=== PATIENT | female | born 1960 | race Caucasian/White ===

== ENCOUNTER 2021-01-17 19:16 | Emergency (ER) | payer OTHER ==
--- OUTSIDE RECORDS SUMMARY | 2021-01-17 19:19 | XMS REPORT | Continuity of Care Document ---
:1960 Author Organization [facility] t Address [address] [place] [address] Dr. Hawkins [address] [place] [id number] Care Team Providers Name Role Phone Unavailable Unavailable Unavailable Problems This patient has no known problems. Allergies, Adverse Reactions, Alerts This patient has no known allergies or adverse reactions. Medications This patient has no known medications. Procedures This patient has no known procedures. Results This patient has no known results.
--- NOTE | 2021-01-17 20:21 | EDPHYS ---
Physician Documentation [facility] Name: Liane Connolly Age: 60 yrs Sex: Female : 1960 Arrival Date: 01/17/2021 Time: 19:18 Bed Waiting Private MD: Sung Turcios C ED Physician Jose Thapa HPI: 01/17 20:19 This 60 yrs old Female presents to ER via Ambulatory with complaints of cp Poison Lydia. 20:19 The patient's rash thought to be caused by Contact allergy. cp 20:19 The rash is located on the body diffusely. The rash can be described as erythematous, cp plaque-like. Onset: The symptoms/episode began/occurred 2 day(s) ago. Associated signs and symptoms: Pertinent positives: itching, Pertinent negatives: burning sensation, difficulty breathing, fever, swelling of lips, swelling of throat, swelling of tongue. Treatment given at home: OTC lotion/cream. Historical: - Allergies: 20:17 avalox; em - PMHx: 20:17 Diabetes mellitus; Hypertensive disorder; gerd; em - PSHx: 20:17 Cholecystectomy; em - Immunization history:: Client reports receiving the 2nd dose of the Covid vaccine. - Social history:: Smoking status: Patient denies any tobacco usage or history of. ROS: 20:20 Skin: Positive for rash, diffusely. cp 20:20 Respiratory: Negative for shortness of breath, wheezing. cp 20:20 Eyes: Negative for injury, pain, redness, and discharge. cp 20:20 Constitutional: Negative for body aches, chills, fever, poor PO intake. 20:20 ENT: Negative for ear pain, sore throat, difficulty swallowing, difficulty handling secretions. 20:20 Cardiovascular: Negative for chest pain. 20:20 Abdomen/GI: Negative for abdominal pain, nausea, vomiting, and diarrhea. 20:20 All other systems are negative. Exam: 20:20 Constitutional: The patient appears in no acute distress, alert, awake, cp non-diaphoretic, non-toxic, well developed, well nourished. 20:20 Head/face: Exam is negative for obvious evidence of injury or deformity, swelling. cp 20:20 Eyes: Periorbital structures: appear normal, Conjunctiva: normal, no exudate, no injection, Sclera: no appreciated abnormality, Lids and lashes: appear normal, bilaterally. 20:20 ENT: External ear(s): are unremarkable, Nose: is normal, Mouth: Lips: moist, Oral mucosa: moist, Posterior pharynx: Airway: no evidence of obstruction, patent, swelling, is not appreciated, erythema, is not appreciated. 20:20 Cardiovascular: Rhythm: regular. 20:20 Respiratory: the patient does not display signs of respiratory distress, Respirations: normal, no use of accessory muscles, no retractions, labored breathing, is not present, Breath sounds: are clear throughout, no decreased breath sounds, no stridor, no wheezing. 20:20 Skin: cellulitis, is not appreciated, rash can be described as erythematous, excoriated, plaque-like, consistent with contact dermatitis, and is diffusely located. Vital Signs: 20:13 BP 129 / 74; Pulse 77; Resp 20; Temp 98.1; Pulse Ox 99% on R/A; Weight 99.79 kg; Height em 5 ft. 6 in. (167.64 cm); 20:13 Body Mass Index 35.51 (99.79 kg, 167.64 cm) em MDM: 20:20 Patient medically screened. cp 20:20 Differential diagnosis: varicella, allergic reaction, cellulitis. 20:20 Data reviewed: vital signs, nurses notes. Counseling: I had a detailed discussion with cp the patient and/or guardian regarding: the historical points, exam findings, and any diagnostic results supporting the discharge/admit diagnosis, to return to the emergency department if symptoms worsen or persist or if there are any questions or concerns that arise at home. Response to treatment: the patient's symptoms have mildly improved after treatment, and as a result, I will discharge patient. ED course: VSS. Patient appears non-toxic and no signs of respiratory distress. Will discharge to home for continued monitoring. Administered Medications: 20:27 Drug: SOLU-Medrol (methylPREDNISolone sodium succinate) 125 mg Route: IM; Site: right em deltoid; 20:28 Follow up: Response: Medication administered at discharge. em 20:27 Drug: Atarax (hydrOXYzine) 50 mg Route: PO; em 20:28 Follow up: Response: Medication administered at discharge. em Disposition: 20:25 Chart complete. 01/18 03:22 Co-signature as Attending Physician, Jose Thapa MD I agree with the assessment and rn plan of care. Attestation: The patient's history, exam findings, diagnostics, and a summary of any interventions or procedures was reviewed in detail with Dominguez AGUSTIN. Disposition Summary: 01/17/21 20:20 Discharge Ordered Location: Home cp Problem: new cp Symptoms: have improved cp Condition: Stable cp Diagnosis - Irritant contact dermatitis due to plants, except food cp Followup: cp - With: Private Physician - When: 2 - 3 days - Reason: Worsening of condition Discharge Instructions: - Discharge Summary Sheet cp - Poison Lydia Dermatitis cp Forms: - Medication Reconciliation Form cp - Thank You Letter cp - Antibiotic Education cp - Prescription Opioid Use cp Prescriptions: - Vistaril 25 mg Oral capsule - take 2 capsule by ORAL route 4 times per day As needed may take 1-2 capsules cp every 6 hours as needed for itching; 40 capsule; Refills: 0, Product Selection Permitted - Prednisone 20 mg Oral Tablet - take 2 tablets by ORAL route once daily for 5 days then take 1 tablet daily for cp 5 days; 15 tablet; Refills: 0, Product Selection Permitted - Pepcid 20 mg Oral Tablet - take 1 tablet by ORAL route every 12 hours for 10 days; 20 tablet; Refills: 0, cp Product Selection Permitted Signatures: Aldo Jacobo RN RN em Nieto, Roman, MD MD rn Page, Corey, PA PA cp Corrections: (The following items were deleted from the chart) 04:55 01/17 20:19 Onset: The symptoms/episode began/occurred 3 day(s) ago, cp cp
--- NOTE | 2021-01-17 20:21 | ER ---
Nurse's Notes [facility] Name: Liane Connolly Age: 60 yrs Sex: Female : 1960 Arrival Date: 01/17/2021 Time: 19:18 Bed Waiting Private MD: Sung Turcios C Diagnosis: Irritant contact dermatitis due to plants, except food Presentation: 01/17 20:13 Chief complaint: Patient states: got into some poison oneal 2 days, reports itchiness on em face, анна. arms. and анна. legs, also reports some itchiness in throat, denies shortness of breath. Coronavirus screen: Client denies travel out of the [place] in the last 14 days. Ebola Screen: Patient negative for fever greater than or equal to 101.5 degrees Fahrenheit, and additional compatible Ebola Virus Disease symptoms Patient denies exposure to infectious person. Patient denies travel to an Ebola-affected area in the 21 days before illness onset. No symptoms or risks identified at this time. Initial Sepsis Screen: Does the patient meet any 2 criteria? No. Patient's initial sepsis screen is negative. Does the patient have a suspected source of infection? No. Patient's initial sepsis screen is negative. Risk Assessment: Do you want to hurt yourself or someone else? Patient reports no desire to harm self or others. Onset of symptoms was January 17, 2021. 20:13 Method Of Arrival: Ambulatory em 20:13 Acuity: ESAU 5 em Triage Assessment: 20:17 General: Appears in no apparent distress. uncomfortable, Behavior is calm, cooperative, em appropriate for age. Pain: Complains of pain in face, right arm, left arm, right leg and left leg Quality of pain is described as itchy. Neuro: Level of Consciousness is awake, alert, obeys commands, Oriented to person, place, time, situation. Cardiovascular: Capillary refill < 3 seconds Patient's skin is warm and dry. Respiratory: Airway is patent Respiratory effort is even, unlabored, Respiratory pattern is regular, symmetrical. Derm: Skin is intact, is healthy with good turgor, Skin is pink, warm \T\ dry. Musculoskeletal: Capillary refill < 3 seconds, Range of motion: intact in all extremities. Historical: - Allergies: 20:17 avalox; em - PMHx: 20:17 Diabetes mellitus; Hypertensive disorder; gerd; em - PSHx: 20:17 Cholecystectomy; em - Immunization history:: Client reports receiving the 2nd dose of the Covid vaccine. - Social history:: Smoking status: Patient denies any tobacco usage or history of. Screenin:18 Abuse screen: Denies threats or abuse. Nutritional screening: No deficits noted. em Tuberculosis screening: No symptoms or risk factors identified. Fall Risk None identified. Vital Signs: 20:13 BP 129 / 74; Pulse 77; Resp 20; Temp 98.1; Pulse Ox 99% on R/A; Weight 99.79 kg; Height em 5 ft. 6 in. (167.64 cm); 20:13 Body Mass Index 35.51 (99.79 kg, 167.64 cm) em ED Course: 19:18 Patient arrived in ED. mr 19:18 Sung Turcios MD is Private Physician. mr 20:17 Triage completed. em 20:18 Arm band placed on. em 20:18 Patient has correct armband on for positive identification. em 20:18 No provider procedures requiring assistance completed. Patient did not have IV access em during this emergency room visit. 20:19 Dominguez Menezes PA is PHCP. cp 20:19 Jose Thapa MD is Attending Physician. cp 20:27 Aldo Jacobo, DENISE is Primary Nurse. em Administered Medications: 20:27 Drug: SOLU-Medrol (methylPREDNISolone sodium succinate) 125 mg Route: IM; Site: right em deltoid; 20:28 Follow up: Response: Medication administered at discharge. em 20:27 Drug: Atarax (hydrOXYzine) 50 mg Route: PO; em 20:28 Follow up: Response: Medication administered at discharge. em Outcome: 20:20 Discharge ordered by . cp 20:28 Discharged to home ambulatory. em 20:28 Condition: stable 20:28 Discharge instructions given to patient, Instructed on discharge instructions, follow up and referral plans. medication usage, Demonstrated understanding of instructions, follow-up care, medications, Prescriptions given X 3. 20:29 Patient left the ED. em Signatures: Nasreen De Leon mr Aldo Jacobo, RN RN em Dominguez Menezes PA PA cp
[2021-01-17 20:35] VITALS: BP 129/74; TEMP 98.1; O2SAT 99
[2021-01-17] MEDS ORDERED: METHYLPREDNISOLONE 125 MG INJ ONE (20:43)
[2021-01-17] MEDS ORDERED: hydrOXYzine HCL 25 MG TAB ONE (20:44)
== END 2021-01-17 20:29 | disposition home or self-care (01) ==
LOC: ER 19:16
DX: L24.7 Irritant contact dermatitis due to plants, except food (principal); I10 Essential (primary) hypertension; Z88.8 Allergy status to other drugs, medicaments and biological substances
CPT/HCPCS: 96372; 99283; J2930

== ENCOUNTER 2023-12-22 11:49 | Observation (INO) | payer OTHER ==
--- OUTSIDE RECORDS SUMMARY | 2023-12-22 12:01 | XMS REPORT | Continuity of Care Document ---
Author Name Unknown Address [address] [facility] [address] th[address] Address [address] [facility] [address] [place] [address] Care Team Providers Care Interactive Video Technician Name Role Phone Unavailable Unavailable Unavailable
--- NOTE | 2023-12-22 12:16 | RAD REPORT ---
EXAM DESCRIPTION: RAD - Chest Single View - 12/22/2023 12:11 pm CLINICAL HISTORY: CHEST PAIN Chest pain. COMPARISON: Chest Pa And Lat (2 Views) dated 06/26/2017; CHEST PA AND LAT 2 VIEW dated 07/31/2014 FINDINGS: Portable technique limits examination quality. The lungs are grossly clear. The heart is normal in size. No displaced fractures. IMPRESSION: No acute intrathoracic process suspected.
[2023-12-22 12:35] LABS: Absolute Lymphocytes (CBC) 1.1 K/uL (0.7-4.9); Absolute Monocytes 0.3 K/uL (0.1-1.3); Absolute Neutrophil 4.2 K/uL (1.8-8.0); Basophils % 0.7 % (0-1.3); Eosinophils % 0.2 % (0-4.4); Hematocrit 41.6 % (36.0-45.0); Hemoglobin 13.9 g/dL (12.0-15.0); Lymphocytes % 19.8 % (15.3-44.8); MCH 29.6 pg (27.0-35.0); MCHC 33.5 g/dL (32.0-36.0); MCV 88.4 fL (80-100); MPV 8.4 fL (7.6-11.3); Monocytes % 5.8 % (3.3-12.3); Neutrophils % 73.5 % (41.7-73.7); Nucleated Red Blood Cells % 0.1 % (0-0); Platelets 139 thou/uL (152-406); RBC Red Blood Cell Count 4.71 M/uL (3.86-4.86)
[2023-12-22 12:45] LABS: Protime INR 1.26
[2023-12-22 14:32] LABS: Specific Gravity 1.015 (1.005-1.030); Sqamous Epithelial <5 /HPF (None Seen); Urine Bacteria None Seen /HPF (<20); Urine Bilirubin NEGATIVE (Negative); Urine Blood 2+ (Negative); Urine Clarity Turbid (Clear); Urine Color Light-Yellow (Yellow); Urine Culture Reflex Order NOT NEEDED; Urine Glucose NEGATIVE (Negative); Urine Ketones 1+ (Negative); Urine Microscopic Reflex YN ORDER UMIC; Urine Mucus Slight /HPF (None Seen); Urine Nitrite NEGATIVE (Negative); Urine Protein TRACE (Negative); Urine RBC <5 /HPF (None Seen); Urine Urobilinogen Normal (Normal); Urine WBC <5 /HPF (<5); Urine pH 5.5 (5.0-7.0)
[2023-12-22 15:17] LABS: Albumin 3.8 g/dL (3.4-5.0); Anion Gap 11.1 mEq/L (5.0-15.0); Bilirubin Direct 0.2 mg/dL (0-0.2); Bilirubin Indirect, Calculated 0.5 mg/dL (0.2-0.8); Bilirubin Total 0.7 mg/dL (0.2-1.0); Globulin 3.8 g/dL (2.3-3.5); Protein, Total 7.6 g/dL (6.4-8.2)
[2023-12-22 15:18] LABS: Magnesium 2.1 mg/dL (1.6-2.4); Potassium 4.1 mEq/L (3.5-5.1)
[2023-12-22] MEDS ORDERED: ONDANSETRON 4 MG/2 ML VIAL ONE (15:39)
[2023-12-22] MEDS ORDERED: PANTOPRAZOLE 40 MG INJ ONE (15:39)
--- NOTE | 2023-12-22 15:39 | ER ---
Nurse's Notes [facility] Name: Liane Connolly Age: 63 yrs Sex: Female : 1960 Arrival Date: 12/22/2023 Time: 11:49 Bed 23 Private MD: Diagnosis: Chest pain, unspecified;Angina pectoris, unspecified;Epigastric abdominal tenderness;Type 2 diabetes mellitus with hyperglycemia;Essential (primary) hypertension;Abnormal electrocardiogram [ECG] [EKG] Presentation: 12/21 12:01 Chief complaint: Patient states: CP for 45 minutes [employer]. Epigastric pain with N/V/D for ll1 3 days. + dizziness EMS states: VSS, IV R AC 550 ml NS bolus given, Zofran 4 MG IV, and aspirin 324 MB PO en route NS on monitor. Coronavirus screen: Client denies travel out of the [place] in the last 14 days. At this time, the client does not indicate any symptoms associated with coronavirus-19. Ebola Screen: Patient denies travel to an Ebola-affected area in the 21 days before illness onset. Initial Sepsis Screen: Does the patient meet any 2 criteria? No. Patient's initial sepsis screen is negative. Does the patient have a suspected source of infection? No. Patient's initial sepsis screen is negative. Risk Assessment: Do you want to hurt yourself or someone else? Patient reports no desire to harm self or others. Onset of symptoms was December 20, 2023. 12:01 Method Of Arrival: EMS ll1 12:01 Acuity: ESAU 3 ll1 Triage Assessment: 12:18 General: Appears uncomfortable, Behavior is calm, cooperative, appropriate for age. ll1 Pain: Complains of pain in epigastric Quality of pain is described as aching. Cardiovascular: Reports chest pain. GI: Reports upper abdominal pain, cramping, diarrhea, nausea, vomiting. Historical: - Allergies: 12:01 AVALOX; ll1 - PMHx: 12:01 diabetes mellitus; GERD; Hypertensive disorder; ll1 - PSHx: 12:01 Cholecystectomy; ll1 - Immunization history:: Adult Immunizations up to date. - Infectious Disease History:: Denies. - Social history:: Smoking status: Patient denies any tobacco usage or history of. Screenin:39 [facility] ED Fall Risk Assessment (Adult) History of falling in the last 3 months, cm10 including since admission No falls in past 3 months (0 pts) Confusion or Disorientation No (0 pts) Intoxicated or Sedated No (0 pts) Impaired Gait No (0 pts) Mobility Assist Device Used No (0 pt) Altered Elimination No (0 pt) Score/Fall Risk Level 0 - 2 = Low Risk Oriented to surroundings, Maintained a safe environment, Hourly rounding (assess needs \T\ fall precautionary measures) done. Abuse screen: Denies threats or abuse. Denies injuries from another. Nutritional screening: No deficits noted. Tuberculosis screening: No symptoms or risk factors identified. Assessment: 12:37 General: Appears in no apparent distress. comfortable, Behavior is calm, cooperative. cm10 Pain: Complains of pain in epigastric area Pain radiates to back. Neuro: No deficits noted. Level of Consciousness is awake, alert, obeys commands, Oriented to person, place, time, situation, Appropriate for age. Cardiovascular: No deficits noted. Patient's skin is warm and dry. Rhythm is sinus rhythm. Respiratory: No deficits noted. Airway is patent Respiratory effort is even, unlabored, Respiratory pattern is regular, symmetrical, Breath sounds are clear bilaterally. GI: No deficits noted. Reports diarrhea, epigastric pain, nausea, vomiting. Derm: No deficits noted. Skin is intact, Skin is pink, warm \T\ dry. 14:48 Reassessment: Patient appears in no apparent distress at this time. No changes from cm10 previously documented assessment. Patient and/or family updated on plan of care and expected duration. Pain level reassessed. Patient is alert, oriented x 3, equal unlabored respirations, skin warm/dry/pink. 15:48 Reassessment: Pt tearful, crying after provider letting her know that she will be cm10 getting a CT to rule out a dissection. Pt states that her son from a dissection and she is scared. Dr. Lazaro made aware and verbal orders for Ativan 1mg IVP obtained to help patient's anxiety. Vital Signs: 12:16 BP 125 / 78; Pulse 66; Resp 17; Temp 98(O); Pulse Ox 98% on R/A; Weight 74.84 kg; ll1 Height 5 ft. 6 in. ; Pain 5/10; 12:32 BP 118 / 83; Pulse 70; Resp 16; Pulse Ox 95% ; cm10 13:00 BP 130 / 72; Pulse 65; Resp 19; Pulse Ox 96% on R/A; cm10 14:14 BP 127 / 69; Pulse 65; Resp 17; Pulse Ox 98% on R/A; cm10 14:30 BP 118 / 70; Pulse 67; Resp 15; Pulse Ox 98% on R/A; cm10 15:00 BP 124 / 66; Pulse 66; Resp 15; Pulse Ox 98% ; cm10 15:30 BP 135 / 68; Pulse 72; Resp 16; Pulse Ox 98% ; cm10 17:00 BP 108 / 64; Pulse 66; Resp 18; Pulse Ox 97% ; cm10 18:00 BP 101 / 51; Pulse 60; Resp 18; Pulse Ox 97% ; cm10 12:16 Body Mass Index 26.63 (74.84 kg, 167.64 cm) ll1 12:16 Pain Scale: Adult ll1 Vitals: 12:38 Cardiac Rhythm Assessment Regular Sinus rhythm. cm10 ED Course: 11:59 Patient arrived in ED. ll1 11:59 Dominguez Lazaro MD is Attending Physician. sandra 12:01 Arm band placed on Patient placed in an exam room, on a stretcher. ll1 12:05 Triage completed. ll1 12:13 XRAY Chest (1 view) In Process Unspecified. EDMS 12:17 Brie Rajput, RN is Primary Nurse. cm10 12:18 Maintain EMS IV. Dressing intact. Good blood return noted. Site clean \T\ dry. Gauge \T\ ll 1 site: 20 G R AC. Flushed right antecubital. 12:37 Initial lab(s) drawn, by me, sent to lab. cm10 12:39 Patient has correct armband on for positive identification. Bed in low position. Call cm10 light in reach. Side rails up X2. Provided Education on: ER process and procedures.. Client placed on continuous cardiac and pulse oximetry monitoring. NIBP monitoring applied. monitor technician on. Door closed. Pillow given. 15:29 ED physician to see patient. cm10 15:37 Sung Turcios MD is Hospitalizing Provider. sandra 16:11 Patient moved back from CT. cm10 18:05 Report faxed at [phone], Betsy confirmed received at 1804. cm10 18:52 No provider procedures requiring assistance completed. Patient admitted, IV remains in cm10 place. Administered Medications: 12:36 Drug: NS 0.9% IV 1000 ml IV at 125 ml/hr continuous Route: IV; Rate: 125 ml/hr; Site: cm10 right antecubital; 18:51 Follow up: Response: No adverse reaction; IV Status: Completed infusion; IV Intake: cm10 500ml 15:41 Not Given (Duplicate Order): aspirinchewable tablet 162 mg PO once sandra 15:50 Drug: Ativan IVP 1 mg IVP once Route: IVP; Site: right antecubital; cm10 16:20 Follow up: Response: No adverse reaction; Marked relief of symptoms cm10 16:20 Drug: Pantoprazole IVP 40 mg IVP once Route: IVP; Site: right antecubital; cm10 18:52 Follow up: Response: No adverse reaction cm10 16:20 Drug: Ondansetron IVP 4 mg IVP once; over 2 minutes Route: IVP; Site: right antecubital;cm10 18:51 Follow up: Response: No adverse reaction 10 16:22 Drug: morphine IVP or IV 4 mg IVP once over 4 mins Route: IVP; Infused Over: 4 mins; cm10 Site: right antecubital; 18:51 Follow up: Response: No adverse reaction 10 16:53 Drug: Metoprolol IVP 2.5 mg IVP once; Hold for SBP <100 or HR <60. Route: IVP; Site: cm10 right antecubital; 18:51 Follow up: Response: No adverse reaction cm10 16:53 Drug: Metoprolol PO 25 mg PO once Route: PO; cm10 18:51 Follow up: Response: No adverse reaction cm10 18:34 Drug: Enoxaparin Sub-Q 1 mg/kg Sub-Q once; givr if ct dissection negative Route: Sub-Q; ll1 Site: right upper abdomen; 18:51 Follow up: Response: No adverse reaction 10 Medication: 12:38 VIS not applicable for this client. cm10 Intake: 18:51 IV: 500ml; Total: 500ml. cm10 Outcome: 15:39 Decision to Hospitalize by Provider. [facility] 18:52 Admitted to Tele accompanied by tech, via wheelchair, room 402, cm10 18:52 Condition: good 18:52 Instructed on the need for admit, 18:52 Patient left the ED. cm10 Signatures: Dispatcher [employer] Dominguez Schuster MD MD cha Lewis, Lynsay RN RN ll1 Brie Rajput RN RN cm10 Corrections: (The following items were deleted from the chart) 14:48 12:32 BP 118 / 3; Pulse 70bpm; Resp 16bpm; Pulse Ox 95%; cm10 cm10
--- NOTE | 2023-12-22 15:39 | EDPHYS ---
Physician Documentation [facility] Name: Liane Connolly Age: 63 yrs Sex: Female : 1960 Arrival Date: 12/22/2023 Time: 11:49 Bed 23 Private MD: ED Physician Dominguez Lazaro HPI: 12/21 15:33 This 63 yrs old Female presents to ER via EMS with complaints of Epigastric sandra Pain, Chest Pain. Historical: - Allergies: 12:01 AVALOX; ll1 - PMHx: 12:01 diabetes mellitus; GERD; Hypertensive disorder; ll1 - PSHx: 12:01 Cholecystectomy; ll1 - Immunization history:: Adult Immunizations up to date. - Infectious Disease History:: Denies. - Social history:: Smoking status: Patient denies any tobacco usage or history of. ROS: 15:35 Constitutional: Negative for fever, chills, and weight loss, Eyes: Negative for injury, sandra pain, redness, and discharge, ENT: Negative for injury, pain, and discharge, Neck: Negative for injury, pain, and swelling, Respiratory: Negative for shortness of breath, cough, wheezing, and pleuritic chest pain, Abdomen/GI: Negative for abdominal pain, nausea, vomiting, diarrhea, and constipation, Back: Negative for injury and pain, : Negative for injury, bleeding, discharge, and swelling, MS/Extremity: Negative for injury and deformity, Skin: Negative for injury, rash, and discoloration, Neuro: Negative for headache, weakness, numbness, tingling, and seizure, Psych: Negative for depression, anxiety, suicide ideation, homicidal ideation, and hallucinations, Allergy/Immunology: Negative for hives, rash, and allergies, Endocrine: Negative for neck swelling, polydipsia, polyuria, polyphagia, and marked weight changes, Hematologic/Lymphatic: Negative for swollen nodes, abnormal bleeding, and unusual bruising, 15:35 Cardiovascular: Positive for chest pain, of the chest, 15:35 Abdomen/GI: Positive for abdominal pain, of the epigastric area, Exam: 15:35 Constitutional: This is a well developed, well nourished patient who is awake, alert, sandra and in no acute distress. Head/Face: Normocephalic, atraumatic. Eyes: Pupils equal round and reactive to light, extra-ocular motions intact. Lids and lashes normal. Conjunctiva and sclera are non-icteric and not injected. Cornea within normal limits. Periorbital areas with no swelling, redness, or edema. ENT: Nares patent. No nasal discharge, no septal abnormalities noted. Tympanic membranes are normal and external auditory canals are clear. Oropharynx with no redness, swelling, or masses, exudates, or evidence of obstruction, uvula midline. Mucous membranes moist. Neck: Trachea midline, no thyromegaly or masses palpated, and no cervical lymphadenopathy. Supple, full range of motion without nuchal rigidity, or vertebral point tenderness. No Meningismus. Chest/axilla: Normal chest wall appearance and motion. Nontender with no deformity. No lesions are appreciated. Respiratory: Lungs have equal breath sounds bilaterally, clear to auscultation and percussion. No rales, rhonchi or wheezes noted. No increased work of breathing, no retractions or nasal flaring. Back: No spinal tenderness. No costovertebral tenderness. Full range of motion. Female : Normal external genitalia. Skin: Warm, dry with normal turgor. Normal color with no rashes, no lesions, and no evidence of cellulitis. MS/ Extremity: Pulses equal, no cyanosis. Neurovascular intact. Full, normal range of motion. Neuro: Awake and alert, GCS 15, oriented to person, place, time, and situation. Cranial nerves II-XII grossly intact. Motor strength 5/5 in all extremities. Sensory grossly intact. Cerebellar exam normal. Normal gait. Psych: Awake, alert, with orientation to person, place and time. Behavior, mood, and affect are within normal limits. 15:35 Cardiovascular: Rate: normal, Rhythm: regular, Pulses: Pulses are 4+ in bilateral radial, brachial, femoral, popliteal, posterior tibial and and dorsalis pedis arteries.. Heart sounds: normal, Edema: is not appreciated, JVD: is not appreciated, 15:50 ECG was reviewed by the Attending Physician. sandra Vital Signs: 12:16 BP 125 / 78; Pulse 66; Resp 17; Temp 98(O); Pulse Ox 98% on R/A; Weight 74.84 kg; ll1 Height 5 ft. 6 in. ; Pain 5/10; 12:32 BP 118 / 83; Pulse 70; Resp 16; Pulse Ox 95% ; cm10 13:00 BP 130 / 72; Pulse 65; Resp 19; Pulse Ox 96% on R/A; cm10 14:14 BP 127 / 69; Pulse 65; Resp 17; Pulse Ox 98% on R/A; cm10 14:30 BP 118 / 70; Pulse 67; Resp 15; Pulse Ox 98% on R/A; cm10 15:00 BP 124 / 66; Pulse 66; Resp 15; Pulse Ox 98% ; cm10 15:30 BP 135 / 68; Pulse 72; Resp 16; Pulse Ox 98% ; cm10 17:00 BP 108 / 64; Pulse 66; Resp 18; Pulse Ox 97% ; cm10 18:00 BP 101 / 51; Pulse 60; Resp 18; Pulse Ox 97% ; cm10 12:16 Body Mass Index 26.63 (74.84 kg, 167.64 cm) ll1 12:16 Pain Scale: Adult ll1 MDM: 11:59 Patient medically screened. sandra 15:40 HEART Score: History: Slightly Suspicious (0), ECG: Non specific repolarization sandra disturbance / LBTB / PM (1), Age: > 45 and < 65 years (1), Risk Factors: > or = 3 Risk factors for atherosclerotic disease (2), [Hypercholesterolemia] [Hypertension] [+ Family HX] [Obesity] Troponin: < or = 1 x Normal Limit (0). The patient was given aspirin in the Emergency Department. ASHLEE Risk Score: 1 - patient's age is greater or equal to 65 years, 1 - Three or more CAD risk factors, 1- Known CAD, 1 - ASA use in past 7 days, 1 - Recent [<24hrs] Severe Angina. Data reviewed: vital signs, nurses notes, lab test result(s), EKG, radiologic studies, CT scan, plain films. Consideration of Admission/Observation Patient was admitted/placed on observation. Escalation of care including admission/observation considered. 12/21 12:00 Order name: Basic Metabolic Panel; Complete Time: 15:24 [facility] 12/21 12:00 Order name: CBC with Diff; Complete Time: 15:24 [facility] 12/21 12:00 Order name: LFT's; Complete Time: 15:24 [facility] 12/21 12:00 Order name: Magnesium; Complete Time: 15:24 [facility] 12/21 12:00 Order name: NT PRO-BNP; Complete Time: 15:24 [facility] 12/21 12:00 Order name: PT-INR; Complete Time: 15:24 [facility] 12/21 12:00 Order name: Troponin HS; Complete Time: 15:24 [facility] 12/21 12:00 Order name: Lipase; Complete Time: 15:24 [facility] 12/21 12:00 Order name: Urinalysis w/ reflexes; Complete Time: 15:24 [facility] 12/21 12:00 Order name: XRAY Chest (1 view); Complete Time: 15:24 [facility] 12/21 17:13 Order name: CT [facility] 12/21 12:00 Order name: EKG; Complete Time: 12:01 [facility] 12/21 15:48 Order name: CONS Physician Consult [facility] 12/21 12:00 Order name: Cardiac monitoring; Complete Time: 12:36 [facility] 12/21 12:00 Order name: EKG - Nurse/Tech; Complete Time: 12:37 [facility] 12/21 12:00 Order name: IV Saline Lock; Complete Time: 12:37 [facility] 12/21 12:00 Order name: Labs collected and sent; Complete Time: 12:37 [facility] 12/21 12:00 Order name: O2 Per Protocol; Complete Time: 12:37 [facility] 12/21 12:00 Order name: O2 Sat Monitoring; Complete Time: 12:37 [facility] EC:50 Rate is 65 beats/min. Rhythm is regular. QRS [place] is Normal. MA interval is normal. QRS sandra interval is normal. QT interval is normal. No Q waves. T waves are Inverted in leads V1, V2, V3, V4. No ST changes noted. Clinical impression: NSR w/ Non-specific ST/T Changes. Interpreted by me. Reviewed by me. Administered Medications: 12:36 Drug: NS 0.9% IV 1000 ml IV at 125 ml/hr continuous Route: IV; Rate: 125 ml/hr; Site: cm10 right antecubital; 18:51 Follow up: Response: No adverse reaction; IV Status: Completed infusion; IV Intake: cm10 500ml 15:41 Not Given (Duplicate Order): aspirinchewable tablet 162 mg PO once [facility] 15:50 Drug: Ativan IVP 1 mg IVP once Route: IVP; Site: right antecubital; cm10 16:20 Follow up: Response: No adverse reaction; Marked relief of symptoms [facility] 16:20 Drug: Pantoprazole IVP 40 mg IVP once Route: IVP; Site: right antecubital; cm10 18:52 Follow up: Response: No adverse reaction cm10 16:20 Drug: Ondansetron IVP 4 mg IVP once; over 2 minutes Route: IVP; Site: right antecubital;cm10 18:51 Follow up: Response: No adverse reaction cm10 16:22 Drug: morphine IVP or IV 4 mg IVP once over 4 mins Route: IVP; Infused Over: 4 mins; cm10 Site: right antecubital; 18:51 Follow up: Response: No adverse reaction cm10 16:53 Drug: Metoprolol IVP 2.5 mg IVP once; Hold for SBP <100 or HR <60. Route: IVP; Site: cm10 right antecubital; 18:51 Follow up: Response: No adverse reaction cm10 16:53 Drug: Metoprolol PO 25 mg PO once Route: PO; cm10 18:51 Follow up: Response: No adverse reaction cm10 18:34 Drug: Enoxaparin Sub-Q 1 mg/kg Sub-Q once; givr if ct dissection negative Route: Sub-Q; ll1 Site: right upper abdomen; 18:51 Follow up: Response: No adverse reaction cm10 Disposition Summary: 12/22/23 15:39 Hospitalization Ordered Notes: Hospitalization Status: Inpatient Admission sandra Provider: Sung Turcios cha Condition: Stable sandra Problem: new sandra Symptoms: have improved sandra Bed/Room Type: Standard sandra Location: Telemetry/MedSurg (Inpatient)(12/22/23 17:43) Room Assignment: [facility](12/22/23 17:43) Diagnosis - Chest pain, unspecified sandra - Angina pectoris, unspecified sandra - Epigastric abdominal tenderness sandra - Type 2 diabetes mellitus with hyperglycemia sandra - Essential (primary) hypertension sandra - Abnormal electrocardiogram [ECG] [EKG] sandra Forms: - Medication Reconciliation Form sandra - SBAR form sandra - Leadership Thank You Letter sandra Signatures: Dispatcher [employer] Jessika Sen Corey, MD MD cha Lewis, Lynsay RN RN ll1 Brie Rajput RN RN cm10 Corrections: (The following items were deleted from the chart) 12:01 12:01 BASIC METABOLIC PANEL+C.LAB.BRZ ordered. EDMS EDMS 12:01 12:01 CBC+H.LAB.BRZ ordered. EDMS EDMS 12:01 12:01 HEPATIC FUNCTION+C.LAB.BRZ ordered. EDMS EDMS 12:01 12:01 MAGNESIUM+C.LAB.BRZ ordered. EDMS EDMS 12:01 12:01 PROBNP+C.LAB.BRZ ordered. EDMS EDMS 12:01 12:01 PROTIME (+INR)+COAG.LAB.BRZ ordered. EDMS EDMS 12:01 12:01 Troponin High Sensitivity+C.LAB.BRZ ordered. EDMS EDMS 12:01 12:01 LIPASE+C.LAB.BRZ ordered. EDMS EDMS 12:01 12:01 Urinalysis+U.LAB.BRZ ordered. EDMS EDMS 15:34 15:34 Angio Aorta For Dissection+CT.RAD.BRZ ordered. EDMS EDMS 17:08 15:39 Telemetry/MedSurg (Inpatient) sandra bd 17:08 15:39 sandra bd 17:43 17:08 [facility] ER HOLD bd bd 17:43 17:08 ERHOLD- bd bd
[2023-12-22] MEDS ORDERED: NS 0.9% VIAL 10 ML ONE (15:40)
[2023-12-22] MEDS ORDERED: MORPHINE 4 MG/ML SYR ONE (15:40)
[2023-12-22] MEDS ORDERED: ASPIRIN 81 MG CHEWABLE TABLET ONE (15:40)
[2023-12-22] MEDS ORDERED: LORazepam 2 MG/ML VIAL ONE (15:45)
[2023-12-22] MEDS ORDERED: METOPROLOL TAR 25 MG TAB ONE (16:46)
[2023-12-22] MEDS ORDERED: METOPROLOL TARTRATE 5 MG/5 ML INJ IV ONE (16:46)
--- NOTE | 2023-12-22 17:13 | RAD REPORT ---
EXAM DESCRIPTION: CT - Angio Aorta For Dissection - 12/22/2023 4:09 pm CLINICAL HISTORY: cp;Abd pain;Dissection;Pain COMPARISON: No comparisons TECHNIQUE: Thin axial CT images of the chest, abdomen, and pelvis were obtained during administratio n of 100mL Isovue 370 IV contrast. Sagittal and coronal reconstructions as well as maximal intensity projection reconstruction were generated and reviewed per an aortic angiography protocol. All CT scans are performed using dose optimization technique as appropriate and may include automated exposure control or mA/KV adjustment according to patient size. FINDINGS: Aorta is normal in diameter with no dissection or other acute aortic findings. Reconstruct ion images show no significant findings. Pulmonary arteries are normal as well. No mass or infiltrate in the lung parenchyma. No pleural thickening, pleural effusion or pneumothorax . No abnormal mediastinal or hilar mass or lymphadenopathy seen. No chest wall mass or abnormal axillar y lymphadenopathy. Celiac, SMA and renal arteries show no suspicious findings. Mild splenomegaly. Status post cholecyste ctomy. Small foci of calcifications in the peripancreatic tissues, largest measure 1.5 cm wall, as we ll as a well-circumscribed focus with central fat density measuring 1.1 cm left flank. These suggest sequelae of small omental infarcts. Small left inguinal hernia containing fat. Solid abdominal viscer a and bowel show no significant findings. No mass or abnormal lymphadenopathy. IMPRESSION: No acute abnormalities on CT angiogram of the aorta. Mild splenomegaly. Sequelae of small remote omental infarcts as above. Small left inguinal hernia containing fat.
[2023-12-22] MEDS ORDERED: SODIUM CHLORIDE 0.9% 10ML INJ IV PRN (17:59)
[2023-12-22] MEDS ORDERED: ONDANSETRON 4 MG/2 ML VIAL IV PRN (17:59)
[2023-12-22] MEDS: METOPROLOL TAR 25 MG TAB PO SCH (18:00)
[2023-12-22 18:08] VITALS: BMI 26.6
[2023-12-22] MEDS: ENOXAPARIN 60 MG/0.6 ML SQ SCH (18:15)
[2023-12-22] MEDS ORDERED: ENOXAPARIN 80 MG/0.8 ML SQ ONE (18:24)
[2023-12-22] MEDS ORDERED: ACETAMINOPHEN 325 MG TABLET PO PRN (18:49)
[2023-12-22] MEDS ORDERED: MORPHINE 2 MG/ML SYR IV PRN (18:50)
[2023-12-22] MEDS ORDERED: ENOXAPARIN 80 MG/0.8 ML SQ SCH ×2 (21:00)
[2023-12-22] MEDS: ZOLPIDEM TARTRATE 10 MG TABLET PO SCH (21:19)
[2023-12-22] MEDS: ALPRAZOLAM 0.5 MG TABLET PO PRN (21:19)
[2023-12-23 07:32] LABS: Absolute Basophils 0.1 K/uL (0-0.5); Absolute Lymphocytes (CBC) 1.9 K/uL (0.7-4.9); Absolute Monocytes 0.4 K/uL (0.1-1.3); Absolute Neutrophil 2.7 K/uL (1.8-8.0); Basophils % 1.1 % (0-1.3); Eosinophils % 0.8 % (0-4.4); Hematocrit 39.7 % (36.0-45.0); Hemoglobin 13.2 g/dL (12.0-15.0); Lymphocytes % 37.5 % (15.3-44.8); MCH 29.7 pg (27.0-35.0); MCHC 33.4 g/dL (32.0-36.0); MCV 88.8 fL (80-100); MPV 8.6 fL (7.6-11.3); Neutrophils % 52.6 % (41.7-73.7); Nucleated Red Blood Cells % 0.1 % (0-0); Platelets 156 thou/uL (152-406); RBC Red Blood Cell Count 4.47 M/uL (3.86-4.86); Red Cell Distribution Width 14.9 % (12.1-15.2)
[2023-12-23 07:45] LABS: Anion Gap 6.6 mEq/L (5.0-15.0); Potassium 3.6 mEq/L (3.5-5.1)
[2023-12-23] MEDS: PANTOPRAZOLE 40 MG INJ IVP SCH (07:50)
[2023-12-23] MEDS: ASPIRIN EC 81 MG TAB PO SCH (07:50)
[2023-12-23] MEDS: ENOXAPARIN 80 MG/0.8 ML SQ SCH (07:50)
[2023-12-23 08:37] VITALS: BP 103/51; TEMP 97.2
[2023-12-23 09:39] VITALS: O2SAT 96
--- NOTE | 2023-12-23 11:12 | HP ---
Date of Admission: 12/22/2023 Chief Complaint: Diarrhea, nausea, vomiting, abdominal pain, and chest pain. History Of Present Illness: This is a 63-year-old pleasant female patient, who was doing fine in her normal usual state of health until day before yesterday, she started to have some diarrhea and had a bout 3 episodes of diarrhea and yesterday she started to have nausea and vomiting and 1 episode of th at. Then, she started to have some pain in high epigastric lower sternal area and the pain had radia bunny to her back. She came into emergency room after all this, called 911, and was brought into ER an d after she was evaluated, she was admitted to the hospital. When I saw her this evening, she was as ymptomatic. The patient denies any fever, chills. She denies eating any outside food or denies eati ng any leftover food and no other family member has similar illness. No recent travel. Allergies: TO MOXIFLOXACIN. Review of Systems: Cardiovascular: As mentioned above. GI: As mentioned above. All other systems reviewed and negative. Medications: List reviewed. Past Medical History: Significant for hypertension, hyperlipidemia, type 2 diabetes mellitus, anxiet y, and insomnia. Past Surgical History: Reviewed. Family History: Reviewed. Social History: Negative for smoking, alcohol use. Physical Examination: Vital Signs: Height 5 feet 6 inches, weight 165 pounds, temperature , pulse , re spiratory , blood pressure , oxygen saturation . General: Awake, alert, oriented, not in distress. HEENT: Head atraumatic, normocephalic. Conjunctivae nonerythematous. Sclerae white. Mouth, no thr ush or edema noted. Ears/Nose, no mass, lesion, discharge noted. Neck: Supple. No JVD, lymph nodes, bruit, thyromegaly noted. Lungs: Bilateral good equal air entry. Clear to auscultation. No rhonchi. No rales. Heart: Normal heart sounds, no murmur or gallop. Abdomen: The patient has very mild tenderness in high epigastric region. No rebound tenderness. Darek wel sounds normoactive. No hepatosplenomegaly. No bruit. Extremities: No leg edema. No calf tenderness. Skin: No rash, ulcer, cellulitis. Lymphatics: No lymph node enlargement in neck, supraclavicular, infraclavicular region. Neuro: No focal neurological deficit. Chest: Unremarkable. External Genitalia: Deferred. Rectal: Deferred. Laboratory Data: White count 5.7, hemoglobin 13.9, platelets 130. Sodium 134, potassium 4.1, chlori de 105, bicarb 22, BUN 11, creatinine 0.76, glucose 116. Liver function tests unremarkable. Initial troponin 4, second troponin 4.1. Lipase 25. Urinalysis was negative. CT angiogram of the aorta pe r dissection protocol was negative for any acute abnormality. It did show mild splenomegaly and sequ makenzie of small remote omental infarct, small left inguinal hernia containing fat. Chest x-ray, no acut e cardiopulmonary changes. Impression: 1.Chest pain. 2.Abdominal pain, epigastric. 3.Probable acute gastroenteritis. 4.Type 2 diabetes mellitus. 5.Hypertension. 6.Hyperlipidemia. Plan: We will go ahead and admit the patient to the hospital. The patient is appropriate for observ ation. So far, cardiac enzymes were negative. We will consult warm in worker. The patient has not romero d any cardiac workup done and she will benefit from elective outpatient cardiac workup like echocardi ogram and stress test and she can continue to follow up with Dr. Mendez on outpatient basis when she gets discharged for completion of further cardiac workup and all these details were discussed with he r. For acute gastroenteritis problem, no need for any further intervention at this time. Findings n oted on CAT scan discussed with her, the possibility of small omental infarct. Once again, no need f or any further intervention for that. That actually does not explain her presentation. For her hype rtension, we will not need to pursue any further intervention, the patient to continue her usual anti hypertensive medications. For hyperlipidemia, the patient to continue her usual medications. For di abetes, she takes Mounjaro injection, her next injection is due tomorrow and I have advised her not t o take it tomorrow and wait 2 to 3 more days and then take her injection, but so far she has been on Mounjaro for last several months and did not have any side effect and we have not changed any dose. I really do not suspect that this is a side effect of Mounjaro either. Details of plan and treatment discussed with her. Total time spent includes 80 minutes and that includes communication with the e mergency room physician, review of ER records, performing today's evaluation and management, and revi ew of prior office record. YARELY/ARACELY Voice ID: [id number]
--- NOTE | 2023-12-23 11:46 | EKG ---
Test Date: 2023-12-22 Test Time: 12:34:09 [employer] Sales Representative: GEOVANNI MEASUREMENT RESULTS: Intervals: Rate: 65 TX: 208 QRSD: 84 QT: 410 QTc: 426 [place]: P: 68 TX: 208 QRS: 88 T: 88 INTERPRETIVE STATEMENTS: Normal sinus rhythm T wave abnormality, consider anterior ischemia Abnormal ECG Compared to ECG 12/05/2005 02:25:22 T-wave abnormality now present Possible ischemia now present Sinus bradycardia no longer present Electronically Signed On 12-23-23 11:43:33 CDT by Long Freire
== END 2023-12-23 10:05 | disposition home or self-care (01) ==
LOC: ER 11:49 → ERHOLD 15:44 → INTOOBSV 15:44 → 4TH 17:44
PROVIDERS: ADMIT Internal Medicine; ATTEND Internal Medicine
DX: R07.9 Chest pain, unspecified (principal); R19.7 Diarrhea, unspecified; R11.2 Nausea with vomiting, unspecified; R10.13 Epigastric pain; E11.9 Type 2 diabetes mellitus without complications; I10 Essential (primary) hypertension; E78.5 Hyperlipidemia, unspecified; K21.9 Gastro-esophageal reflux disease without esophagitis; R94.31 Abnormal electrocardiogram [ECG] [EKG]; Z88.1 Allergy status to other antibiotic agents; F41.9 Anxiety disorder, unspecified; G47.00 Insomnia, unspecified; Z79.85 Long-term (current) use of injectable non-insulin antidiabetic drugs
CPT/HCPCS: 36415; 71045; 71275; 74175; 80048; 80076; 81001; 82947; 83690; 83735; 83880; 84484; 85025; 85610; 93005; 96361; 96372; 96374; 96375; 99285; A4216; G0378; J2405; J2470; Q9967

== ENCOUNTER 2024-04-25 18:01 | Emergency (ER) | payer OTHER ==
--- OUTSIDE RECORDS SUMMARY | 2024-04-25 18:04 | XMS REPORT | Continuity of Care Document ---
Author Name Unknown Address [address] [place], [place] [address]onnect Address [address] [place] [address] Care Team Providers Care Radiology Ct Technologist Name Role Phone Unavailable Unavailable Unavailable
[2024-04-25] MEDS ORDERED: PANTOPRAZOLE 40 MG INJ ONE (18:13)
[2024-04-25] MEDS ORDERED: METOCLOPRAMIDE 10 MG/2mL INJ ONE (18:13)
[2024-04-25] MEDS ORDERED: NA CHLORIDE 0.9% 1,000 ML ONE (18:14)
[2024-04-25] MEDS ORDERED: LORazepam 2 MG/ML VIAL ONE (18:31)
[2024-04-25 18:44] LABS: Absolute Monocytes 0.3 K/uL (0.1-1.3); Absolute Neutrophil 3.3 K/uL (1.8-8.0); Basophils % 0.9 % (0-1.3); Eosinophils % 0.1 % (0-4.4); Hematocrit 42.7 % (36.0-45.0); Hemoglobin 14.1 g/dL (12.0-15.0); Lymphocytes % 21.9 % (15.3-44.8); MCH 29.7 pg (27.0-35.0); MCHC 33.1 g/dL (32.0-36.0); MCV 89.8 fL (80-100); MPV 8.7 fL (7.6-11.3); Monocytes % 5.7 % (3.3-12.3); Neutrophils % 71.4 % (41.7-73.7); Nucleated Red Blood Cells % 0.1 % (0-0); Platelets 129 thou/uL (152-406); RBC Red Blood Cell Count 4.76 M/uL (3.86-4.86); Red Cell Distribution Width 14.5 % (12.1-15.2)
[2024-04-25 18:48] LABS: PT Prothrombin Time 13.1 SECONDS (9.4-12.5); PTT, Activated Partial Thromb 30.1 SECONDS (24.3-36.9); Protime INR 1.18
[2024-04-25 18:59] LABS: AST/SGOT 13 U/L (15-37); Albumin 3.8 g/dL (3.4-5.0); Alkaline Phosphatase 51 U/L (45-117); Anion Gap 10.5 mEq/L (5.0-15.0); BUN Blood Urea Nitrogen 8 mg/dL (7-18); Bicarbonate 24 mEq/L (21-32); Bilirubin Direct 0.2 mg/dL (0-0.2); Bilirubin Indirect, Calculated 0.6 mg/dL (0.2-0.8); Bilirubin Total 0.8 mg/dL (0.2-1.0); Globulin 3.9 g/dL (2.3-3.5); Glomerular Filtration Rate 85 ml/min (=/>90); Glucose Level 125 mg/dL (74-106); Magnesium 1.8 mg/dL (1.6-2.4); Potassium 3.5 mEq/L (3.5-5.1); Protein, Total 7.7 g/dL (6.4-8.2); Sodium Level 137 mEq/L (136-145); Troponin High Sensitivity 3.8 pg/mL (<58.9)
[2024-04-25 19:02] LABS: ALT/SGPT < 14 U/L (13-56)
[2024-04-25] MEDS ORDERED: MECLIZINE HCL 12.5 MG TAB ONE (19:34)
--- NOTE | 2024-04-25 19:43 | RAD REPORT ---
EXAMINATION: ONE VIEW CHEST XR CLINICAL INDICATION: Female, 64 years old.,vomiting TECHNIQUE: Frontal chest projection is submitted. Examination is limited by patient positioning and t echnique. COMPARISON: 12/22/2023 FINDINGS: The lungs are well inflated and clear. No pneumothorax or sizable effusion. The heart is normal in s ize. Mediastinal contours are unremarkable. IMPRESSION: No acute intrathoracic abnormalities.
--- NOTE | 2024-04-25 19:51 | RAD REPORT ---
EXAM: CT Head Brain Wo Cont HISTORY: vomiting;Headache COMPARISON: None TECHNIQUE: Multiple contiguous axial images were obtained for a CT of the brain without contrast. Sag ittal and coronal reformats were performed. One or more of the following dose reduction techniques were used: Automated exposure control, adjus tment of the mA and kV according to patient size, and iterative reconstruction. Unless otherwise specified, incidental findings do not require dedicated imaging follow-up. FINDINGS: No evidence of hydrocephalus, intracranial hemorrhage, or extra-axial fluid collection. The brain is normal in morphology. The calvarium is intact. The visualized paranasal sinuses and mastoid air cells are essentially clear . IMPRESSION: No evidence of acute intracranial abnormality.
--- NOTE | 2024-04-25 20:15 | EDPHYS ---
Physician Documentation [facility] Name: Liane Connolly Age: 64 yrs Sex: Female : 1960 Arrival Date: 04/25/2024 Time: 18:01 Bed 4 Private MD: ED Physician Carlos A Scott HPI: 04/25 18:10 This 64 yrs old Female presents to ER via EMS with complaints of Headache. cp 18:10 The patient complains of pain to the around head. The patient describes the headache as cp tight, like vice. Onset: The symptoms/episode began/occurred today. 18:10 Patient reports having sudden headache described as tight like vice around head that cp started suddenly today. Reports having nausea and vomiting before onset of headache, dizziness today and yesterday. No fever. Patient reports having gastric ulcer that was seen on recent endoscopy by DR Stark and is scheduled for colonoscopy. Historical: - Allergies: 18:04 AVALOX; bp - PMHx: 18:04 diabetes mellitus; GERD; Hypertensive disorder; bp - PSHx: 18:04 Cholecystectomy; bp - Immunization history:: Adult Immunizations up to date. - Infectious Disease History:: Denies. - Social history:: Smoking status: Patient denies any tobacco usage or history of. ROS: 18:15 Constitutional: Negative for body aches, fever, poor PO intake, cp 18:15 Cardiovascular: Negative for chest pain, edema, palpitations, cp 18:15 Respiratory: Negative for cough, shortness of breath, wheezing, 18:15 Abdomen/GI: Positive for abdominal pain, nausea and vomiting, Negative for diarrhea, constipation, 18:15 : Negative for urinary symptoms, 18:15 Neuro: Positive for dizziness, headache, Negative for altered mental status, seizure activity, speech changes, syncope, weakness, Exam: 18:20 Constitutional: The patient appears in no acute distress, alert, awake, cp non-diaphoretic, non-toxic, well developed, well nourished, uncomfortable, 18:20 Head/Face: Normocephalic, atraumatic. cp 18:20 Eyes: Periorbital structures: appear normal, Pupils: equal, round, and reactive to light and accomodation, Extraocular movements: intact throughout, Conjunctiva: normal, no exudate, no injection, Sclera: no appreciated abnormality, Lids and lashes: appear normal, bilaterally, 18:20 ENT: External ear(s): are unremarkable, Nose: is normal, Mouth: Lips: moist, Oral mucosa: pink and intact, moist, Posterior pharynx: Airway: no evidence of obstruction, patent, 18:20 Neck: ROM/movement: is normal, is supple, without pain, no range of motions limitations, 18:20 Chest/axilla: Inspection: no acute changes, 18:20 Cardiovascular: Rate: normal, Rhythm: regular, Edema: is not appreciated, JVD: is not appreciated, 18:20 Respiratory: the patient does not display signs of respiratory distress, Respirations: normal, no use of accessory muscles, no retractions, labored breathing, is not present, Breath sounds: are clear throughout, no decreased breath sounds, no stridor, no wheezing, 18:20 Abdomen/GI: Inspection: abdomen appears normal, Palpation: abdomen is soft and non-tender, in all quadrants, 18:20 Neuro: Orientation: to person, place \T\ time. Mentation: is normal, Motor: moves all fours, no focal deficits, Sensation: no obvious gross deficits, 18:28 ECG was reviewed by the Attending Physician. Vital Signs: 18:02 BP 148 / 76; Pulse 72; Resp 16; Temp 98; Pulse Ox 96% ; bp 19:00 BP 117 / 52; Pulse 64; Resp 18; Pulse Ox 99% ; cp4 20:31 BP 122 / 61; Pulse 67; Resp 16; Temp 98.4; Pulse Ox 98% ; dd2 MDM: 18:05 Medical Screening Exam initiated cp 20:13 Data reviewed: vital signs, nurses notes, lab test result(s), EKG, radiologic studies, cp CT scan, plain films, and as a result, I will discharge patient. 20:13 Differential diagnosis: cluster headache, hypertensive headache, migraine, neoplasm, cp sinusitis, subarachnoid bleed, subdural hematoma, temporal arteritis, tension headache. I considered the following discharge prescriptions or medication management in the emergency department Medications were administered in the Emergency Department. See MAR. Independent interpretation of the following test(s) in the Emergency Department EKG: See my EKG interpretation above. Care significantly affected by the following chronic conditions: Diabetes, Hypertension. Counseling: I had a detailed discussion with the patient and/or guardian regarding the historical points, exam findings, and any diagnostic results supporting the discharge/admit diagnosis, lab results, radiology results, to return to the emergency department if symptoms worsen or persist or if there are any questions or concerns that arise at home. Response to treatment: the patient's symptoms have markedly improved after treatment, and as a result, I will discharge patient. ED course: VSS. Nausea and headache markedly improved, vomiting resolved. Will discharge to home for continued monitoring. 12/ 18:08 Order name: Basic Metabolic Panel; Complete Time: 19:06 cp 12/02 19:06 Interpretation: Normal except: GLUC 125; GFR 85. cp 12/02 18:08 Order name: CBC with Diff; Complete Time: 19:06 cp 12/02 18:08 Order name: LFT's; Complete Time: 19:06 cp 12/02 18:08 Order name: Magnesium; Complete Time: 19:06 cp 12/02 18:08 Order name: PT-INR; Complete Time: 19:06 cp 12/02 18:08 Order name: Troponin HS; Complete Time: 19:06 cp 12/02 18:08 Order name: Ptt, Activated; Complete Time: 19:06 cp 12/02 18:08 Order name: CT Head Brain wo Cont; Complete Time: 19:58 cp 12/02 19:59 Interpretation: Report reviewed. cp 12/02 18:08 Order name: XRAY Chest (1 view); Complete Time: 19:58 cp 12/02 18:08 Order name: Cardiac monitoring; Complete Time: 18:09 cp 12/02 18:08 Order name: EKG - Nurse/Tech; Complete Time: 18:29 cp 12/02 18:08 Order name: IV Saline Lock; Complete Time: 18:09 cp 12/02 18:08 Order name: Labs collected and sent; Complete Time: 18:29 cp 12/02 18:08 Order name: O2 Per Protocol; Complete Time: 18:08 cp 12/02 18:08 Order name: O2 Sat Monitoring; Complete Time: 18:08 cp 12/02 19:59 Order name: PO challenge; Complete Time: 20:22 cp 12/02 20:00 Order name: Misc. Order: ambulate patient; Complete Time: 20:21 cp EC:28 Rate is 60 beats/min. Rhythm is regular. AK interval is normal. QRS interval is normal. cp QT interval is normal. T waves are Inverted in leads aVL, aVR, V2, V3. Interpreted by me. Reviewed by me. Administered Medications: 18:28 Drug: NS 0.9% IV 1000 ml IV at 1000 ml once; to be given as a bolus over 60 minutes bp Route: IV; Rate: 1000 ml; Site: right antecubital; 19:36 Follow up: IV Status: Completed infusion; IV Intake: 1000ml dd2 18:28 Drug: metoCLOPramide IVP 10 mg IVP once; over 1 to 2 minutes Route: IVP; Site: right bp antecubital; 19:36 Follow up: Response: No adverse reaction dd2 18:28 Drug: Pantoprazole IVP 40 mg IVP once Route: IVP; Site: right antecubital; bp 19:36 Follow up: Response: No adverse reaction dd2 18:34 Drug: Ativan IVP 0.5 mg IVP once Route: IVP; Site: right antecubital; bp 19:35 Follow up: Response: No adverse reaction dd2 19:37 Follow up: Response: No adverse reaction cp4 19:36 Drug: Meclizine PO 25 mg PO once Route: PO; cp4 20:34 Follow up: Response: No adverse reaction dd2 Disposition: 04/26 18:33 Chart complete. cp Disposition Summary: 04/25/24 20:14 Discharge Ordered Notes: Location: Home cp Problem: new cp Symptoms: have improved cp Condition: Stable cp Diagnosis - Headache cp - Nausea with vomiting, unspecified cp - Dizziness and giddiness cp Followup: cp - With: Private Physician - When: 2 - 3 days - Reason: Recheck today's complaints Discharge Instructions: - Discharge Summary Sheet cp - Dizziness cp - General Headache Without Cause cp - Nausea and Vomiting, Adult cp - Vertigo cp Forms: - Medication Reconciliation Form cp - Antibiotic Education cp - Prescription Opioid Use cp - Patient Portal Instructions cp - Leadership Thank You Letter cp Prescriptions: - Meclizine 25 mg Oral Tablet - take 1 tablet ORAL route every 8 hours As needed; 30 tablet; Refills: 0, cp Product Selection Permitted - Reglan 10 mg Oral Tablet - take 1 tablet ORAL route every 6 hours take 30 minutes before meals and at cp bedtime; 20 tablet; Refills: 0, Product Selection Permitted Signatures: Dispatcher [employer] EDMS Dominguez Menezes PA PA cp Peltier, Brian, RN RN Etelvina Higgins cp4 PANTERA MAY RN dd2 Corrections: (The following items were deleted from the chart) 04/25 18:08 18:08 Head Brain Wo Cont+CT.RAD.BRZ ordered. EDMS EDMS 18:09 18:09 BASIC METABOLIC PANEL+C.LAB.BRZ ordered. EDMS EDMS 18: 18:09 CBC+H.LAB.BRZ ordered. EDMS EDMS 18: 18:09 HEPATIC FUNCTION+C.LAB.BRZ ordered. EDMS EDMS 18:09 18:09 MAGNESIUM+C.LAB.BRZ ordered. EDMS EDMS 18: 18:09 PROTIME (+INR)+COAG.LAB.BRZ ordered. EDMS EDMS 18:09 18:09 Troponin High Sensitivity+C.LAB.BRZ ordered. EDMS EDMS 18:09 18:09 PTT, ACTIVATED+COAG.LAB.BRZ ordered. EDMS EDMS 18:09 18:09 Chest Single View+RAD.RAD.BRZ ordered. EDMS EDMS
--- NOTE | 2024-04-25 20:15 | ER ---
Nurse's Notes [facility] Name: Liane Connolly Age: 64 yrs Sex: Female : 1960 Arrival Date: 04/25/2024 Time: 18:01 Bed 4 Private MD: Diagnosis: Headache;Nausea with vomiting, unspecified;Dizziness and giddiness Presentation: 04/25 18:02 Chief complaint: EMS states: GRUBBS AND N/V. Coronavirus screen: At this time, the client bp does not indicate any symptoms associated with coronavirus-19. Ebola Screen: No symptoms or risks identified at this time. Initial Sepsis Screen: Does the patient meet any 2 criteria? No. Patient's initial sepsis screen is negative. Does the patient have a suspected source of infection? No. Patient's initial sepsis screen is negative. Risk Assessment: Do you want to hurt yourself or someone else? Patient reports no desire to harm self or others. Onset of symptoms is unknown. Care prior to arrival: Medication(s) given: zofran 4 mg, IV initiated. 18 GA, in the right antecubital area. 18:02 Method Of Arrival: EMS: [facility] bp 18:02 Acuity: ESAU 3 bp Triage Assessment: 18:04 Headache History: The patient has had previous headaches and this one is more severe bp than previous episodes. General: Appears in no apparent distress. uncomfortable, Behavior is calm, cooperative, appropriate for age. Pain: Complains of pain in head Pain currently is 5 out of 10 on a pain scale. Pain began suddenly, Also complains of nausea, diaphoresis. EENT: No deficits noted. Neuro: Level of Consciousness is awake, alert, obeys commands, Oriented to Appropriate for age. Cardiovascular: No deficits noted. Respiratory: No deficits noted. GI: Reports nausea, vomiting. : No signs and/or symptoms were reported regarding the genitourinary system. Derm: No deficits noted. Musculoskeletal: No deficits noted. Historical: - Allergies: 18:04 AVALOX; bp - PMHx: 18:04 diabetes mellitus; GERD; Hypertensive disorder; bp - PSHx: 18:04 Cholecystectomy; bp - Immunization history:: Adult Immunizations up to date. - Infectious Disease History:: Denies. - Social history:: Smoking status: Patient denies any tobacco usage or history of. Screenin:07 [facility] ED Fall Risk Assessment (Adult) History of falling in the last 3 months, bp including since admission No falls in past 3 months (0 pts) Confusion or Disorientation No (0 pts) Intoxicated or Sedated No (0 pts) Impaired Gait No (0 pts) Mobility Assist Device Used No (0 pt) Altered Elimination No (0 pt) Score/Fall Risk Level 0 - 2 = Low Risk. Abuse screen: Denies threats or abuse. Denies injuries from another. Nutritional screening: No deficits noted. Tuberculosis screening: No symptoms or risk factors identified. Assessment: 19:15 Reassessment: SEE TRIAGE ASSESSMENT FOR FULL ASSESSMENT. dd2 Vital Signs: 18:02 BP 148 / 76; Pulse 72; Resp 16; Temp 98; Pulse Ox 96% ; bp 19:00 BP 117 / 52; Pulse 64; Resp 18; Pulse Ox 99% ; cp4 20:31 BP 122 / 61; Pulse 67; Resp 16; Temp 98.4; Pulse Ox 98% ; dd2 ED Course: 18:02 Patient arrived in ED. bp 18:04 Triage completed. bp 18:05 Dominguez Menezes PA is PHCP. cp 18:05 Carlos A Scott MD is Attending Physician. cp 18:07 Lonnie Thornton, DENISE is Primary Nurse. bp 18:07 Arm band placed on. bp 18:07 Patient has correct armband on for positive identification. bp 18:07 Maintain EMS IV. Dressing intact. Good blood return noted. Site clean \T\ dry. Gauge \T\ bp site: 18 RAC. 18:44 CT Head Brain wo Cont In Process Unspecified. EDMS 19:09 XRAY Chest (1 view) In Process Unspecified. EDMS 20:31 Provided Education on: D/C INSTRUCTIONS. dd2 20:31 No provider procedures requiring assistance completed. IV discontinued, intact, dd2 bleeding controlled, No redness/swelling at site. Pressure dressing applied. Administered Medications: 18:28 Drug: NS 0.9% IV 1000 ml IV at 1000 ml once; to be given as a bolus over 60 minutes bp Route: IV; Rate: 1000 ml; Site: right antecubital; 19:36 Follow up: IV Status: Completed infusion; IV Intake: 1000ml dd2 18:28 Drug: metoCLOPramide IVP 10 mg IVP once; over 1 to 2 minutes Route: IVP; Site: right bp antecubital; 19:36 Follow up: Response: No adverse reaction dd2 18:28 Drug: Pantoprazole IVP 40 mg IVP once Route: IVP; Site: right antecubital; bp 19:36 Follow up: Response: No adverse reaction dd2 18:34 Drug: Ativan IVP 0.5 mg IVP once Route: IVP; Site: right antecubital; bp 19:35 Follow up: Response: No adverse reaction dd2 19:37 Follow up: Response: No adverse reaction cp4 19:36 Drug: Meclizine PO 25 mg PO once Route: PO; cp4 20:34 Follow up: Response: No adverse reaction dd2 Medication: 20:31 VIS not applicable for this client. dd2 Intake: 19:36 IV: 1000ml; Total: 1000ml. dd2 Outcome: 20:14 Discharge ordered by MD. cp 20:31 Discharged to home ambulatory, dd2 20:31 Condition: stable 20:31 Discharge instructions given to patient, Instructed on discharge instructions, follow up and referral plans. medication usage, Demonstrated understanding of instructions, follow-up care, medications, Prescriptions given X 2, 20:34 Patient left the ED. dd2 Signatures: Dispatcher [employer] EDMS Dominguez eMnezes PA PA cp Peltier, Brian, RN RN Etelvina Higgins PANTERA LUIS RN RN dd2
[2024-04-25 23:12] VITALS: BP 122/61; TEMP 98.4; O2SAT 98
== END 2024-04-25 20:34 | disposition home or self-care (01) ==
LOC: ER 18:01
DX: R51.9 Headache, unspecified (principal); R11.2 Nausea with vomiting, unspecified; R42 Dizziness and giddiness; I10 Essential (primary) hypertension
CPT/HCPCS: 96361; 85025; 80048; 36415; 83735; 85610; 80076; 85730; 84484; 70450; 71045; 96375; 96374; 99284; J8597; J2765; J2470; J7030

== ENCOUNTER 2024-06-20 21:43 | Inpatient (IN) | payer OTHER ==
[2024-06-20 22:14] LABS: Absolute Monocytes 0.2 K/uL (0.1-1.3); Absolute Neutrophil 3.8 K/uL (1.8-8.0); Basophils % 0.5 % (0-1.3); Eosinophils % 0.2 % (0-4.4); Hematocrit 42.5 % (36.0-45.0); Hemoglobin 14.5 g/dL (12.0-15.0); Lymphocytes % 19.5 % (15.3-44.8); MCH 30.1 pg (27.0-35.0); MCHC 34.1 g/dL (32.0-36.0); MCV 88.3 fL (80-100); MPV 8.1 fL (7.6-11.3); Monocytes % 4.8 % (3.3-12.3); Nucleated Red Blood Cells % 0.1 % (0-0); Platelets 145 thou/uL (152-406); RBC Red Blood Cell Count 4.81 M/uL (3.86-4.86); Red Cell Distribution Width 14.5 % (12.1-15.2)
[2024-06-20 22:17] LABS: PT Prothrombin Time 12.9 SECONDS (9.4-12.5); Protime INR 1.23
[2024-06-20 22:31] LABS: Albumin 4.3 g/dL (3.4-5.0); Albumin/Globulin Ratio 1.1 (1.1-1.8); Anion Gap 13.5 mEq/L (5.0-15.0); Bilirubin Direct 0.2 mg/dL (0-0.2); Bilirubin Indirect, Calculated 0.7 mg/dL (0.2-0.8); Bilirubin Total 0.9 mg/dL (0.2-1.0); Globulin 3.8 g/dL (2.3-3.5); Magnesium 1.8 mg/dL (1.6-2.4); Potassium 3.5 mEq/L (3.5-5.1); Protein, Total 8.1 g/dL (6.4-8.2); Troponin High Sensitivity 3.6 pg/mL (<58.9)
[2024-06-20] MEDS ORDERED: ONDANSETRON 4 MG/2 ML VIAL ONE (22:34)
[2024-06-20] MEDS ORDERED: NITROGLYCERIN 0.4 MG/TAB SL ONE (22:34)
[2024-06-20] MEDS ORDERED: MORPHINE 2 MG/ML SYR ONE (22:35)
--- NOTE | 2024-06-20 22:35 | RAD REPORT ---
EXAM: Chest Single View HISTORY: CHEST PAIN COMPARISON: 04/25/2024 FINDINGS: LUNGS/PLEURA: The lungs are clear. No pleural effusions or pneumothorax. No pulmonary edema. MEDIASTINUM: The mediastinal silhouette is within normal limits. CARDIAC: The cardiac silhouette is within normal limits. UPPER ABDOMEN: No significant abnormality. BONES: No acute abnormality. LINES/TUBES/OTHER: N/A IMPRESSION: No evidence of acute cardiopulmonary disease.
--- NOTE | 2024-06-21 00:12 | EDPHYS ---
Physician Documentation [facility] Name: Liane Connolly Age: 64 yrs Sex: Female : 1960 Arrival Date: 06/20/2024 Time: 21:43 Bed 24 Private MD: ED Physician Comfort Marte HPI: 06/20 22:04 This 64 yrs old Female presents to ER via Ambulatory with complaints of Chest Pain, sp3 Shortness Of Breath, Nausea. 22:04 64-year-old female with history of diabetes, GERD, hypertension, who sees Dr. Turcios, now sp3 presents to the ED with chief complaint chest pain rating to epigastric region for the last 1 hour. She denies any other symptoms including shortness of breath, nausea, headache, fever, syncope, near syncope, abdominal pain, diarrhea, bleeding, melena, or any other signs or symptoms on ROS at this time.. Historical: - Allergies: 21:56 AVALOX; hb - PMHx: 21:56 diabetes mellitus; GERD; Hypertensive disorder; hb - PSHx: 21:56 Cholecystectomy; hb - Immunization history:: Adult Immunizations up to date. - Infectious Disease History:: Denies. - Social history:: Smoking status: Patient denies any tobacco usage or history of. ROS: 22:05 Constitutional: Negative for fever, chills, and weight loss, Eyes: Negative for injury, sp3 pain, redness, and discharge, Neck: Negative for injury, pain, and swelling, Cardiovascular: Negative for chest pain, palpitations, and edema, Respiratory: Negative for shortness of breath, cough, wheezing, and pleuritic chest pain, Back: Negative for injury and pain, MS/Extremity: Negative for injury and deformity, Skin: Negative for injury, rash, and discoloration, Neuro: Negative for headache, weakness, numbness, tingling, and seizure, Psych: Negative for depression, anxiety, suicide ideation, homicidal ideation, and hallucinations, Allergy/Immunology: Negative for hives, rash, and allergies, Endocrine: Negative for neck swelling, polydipsia, polyuria, polyphagia, and marked weight changes, Hematologic/Lymphatic: Negative for swollen nodes, abnormal bleeding, and unusual bruising, 22:05 All other systems are negative, Exam: 22:05 Constitutional: This is a well developed, well nourished patient who is awake, alert, sp3 and in no acute distress. Head/Face: Normocephalic, atraumatic. Eyes: Pupils equal round and reactive to light, extra-ocular motions intact. Lids and lashes normal. Conjunctiva and sclera are non-icteric and not injected. Cornea within normal limits. Periorbital areas with no swelling, redness, or edema. ENT: Nares patent. No nasal discharge, no septal abnormalities noted. External auditory canals are clear. Oropharynx with no redness, swelling, or masses, exudates, or evidence of obstruction, uvula midline. Mucous membranes moist. Neck: Trachea midline, no thyromegaly or masses palpated, and no cervical lymphadenopathy. Supple, full range of motion without nuchal rigidity, or vertebral point tenderness. No Meningismus. Chest/axilla: Normal chest wall appearance and motion. Nontender with no deformity. No lesions are appreciated. Cardiovascular: Regular rate and rhythm with a normal S1 and S2. No gallops, murmurs, or rubs. Normal PMI, no JVD. No pulse deficits. Respiratory: Lungs have equal breath sounds bilaterally, clear to auscultation and percussion. No rales, rhonchi or wheezes noted. No increased work of breathing, no retractions or nasal flaring. Abdomen/GI: Soft, non-tender, with normal bowel sounds. No distension or tympany. No guarding or rebound. No evidence of tenderness throughout. Back: No spinal tenderness. No costovertebral tenderness. Full range of motion. Skin: Warm, dry with normal turgor. Normal color with no rashes, no lesions, and no evidence of cellulitis. MS/ Extremity: Pulses equal, no cyanosis. Neurovascular intact. Full, normal range of motion. Neuro: Awake and alert, GCS 15, oriented to person, place, time, and situation. Cranial nerves II-XII grossly intact. Motor strength 5/5 in all extremities. Sensory grossly intact. Cerebellar exam normal. Normal gait. Psych: Awake, alert, with orientation to person, place and time. Behavior, mood, and affect are within normal limits. 22:05 ECG was reviewed by the Attending Physician. EKG demonstrates normal sinus rhythm at 81 bpm with normal intervals, normal QRS, normal axis, nonspecific diffuse ST's ST changes without evidence of acute ischemia. Vital Signs: 21:55 BP 174 / 85; Pulse 84; Resp 14; Temp 97.8(TE); Pulse Ox 100% on R/A; Weight 74.84 kg; hb Height 5 ft. 4 in. ; Pain 8/10; 22:55 BP 152 / 75; Pulse 77; Resp 16; Pulse Ox 100% ; cp4 21:55 Body Mass Index 28.32 (74.84 kg, 162.56 cm) hb 21:55 Pain Scale: Adult hb MDM: 21:49 Medical Screening Exam initiated sp3 22:06 Data reviewed: vital signs, nurses notes, lab test result(s), EKG, radiologic studies. sp3 ED course: 64-year-old female with PMH above, GERD with no cardiac history now presenting with chest pain. Given her age and complexity, this will not be a low risk approach. If initial workup negative which will include EKG, chest x-ray, labs, CT scan of the chest abdomen pelvis, we will place in 23 observation under PCP with cardiology consultation. She does see Dr. Mendez outpatient. Differential diagnosis includes acute coronary syndrome, musculoskeletal pain, GI pathology including GERD, gastritis and/or ulcer, biliary pathology, other GI pathology, among others. I am not highly suspicious of vascular or aortic pathology at this time. Vital signs are normal other than the mild hypertension. Will treat with nitroglycerin, morphine and Zofran while workup is pending. Any additional medications will be added as indicated.. 06/21 00:11 ED course: Initial workup negative. I spoke to Dr. Turcios and we will admit patient for 3 23-hour observation cardiac rule out and further assessment.. 06/20 21:49 Order name: Basic Metabolic Panel; Complete Time: : 3 06/20 21:49 Order name: CBC with Diff; Complete Time: 22:39 3 06/20 21:49 Order name: LFT's; Complete Time: : 3 06/20 21:49 Order name: Magnesium; Complete Time: : 3 06/20 21:49 Order name: NT PRO-BNP; Complete Time: : 3 06/20 21:49 Order name: PT-INR; Complete Time: 22:39 3 06/20 21:49 Order name: Troponin HS; Complete Time: : 3 06/21 00:08 Order name: Basic Metabolic Panel EDMS 06/21 00:08 Order name: Basic Metabolic Panel EDMS 06/21 00:08 Order name: CBC with Automated Diff EDMS 06/21 00:08 Order name: CBC with Automated Diff EDMS 06/21 00:08 Order name: Troponin High Sensitivity EDMS 06/21 00:08 Order name: Troponin High Sensitivity; Complete Time: 05:54 EDMS 06/21 00:08 Order name: Troponin High Sensitivity; Complete Time: 05:54 EDMS 06/21 00:08 Order name: Troponin High Sensitivity EDMS 06/21 00:11 Order name: Lipase; Complete Time: 05:54 sp3 06/21 00:14 Order name: Lipase; Complete Time: 01: EDMS 06/20 21:49 Order name: XRAY Chest (1 view); Complete Time: 22:39 sp3 06/20 22:04 Order name: CT Chest, Abdomen, Pelvis - W/Contrast sp3 06/21 00:08 Order name: CONS Physician Consult EDMS 06/21 00:08 Order name: EKG Electrocardiogram EDMS 06/21 00:08 Order name: EKG Electrocardiogram EDMS 06/21 00:08 Order name: EKG Electrocardiogram EDMS 06/21 00:08 Order name: EKG Electrocardiogram EDMS 06/20 21:49 Order name: Cardiac monitoring; Complete Time: 22:00 sp3 06/20 21:49 Order name: EKG - Nurse/Tech; Complete Time: 22:00 sp3 06/20 21:49 Order name: IV Saline Lock; Complete Time: 22:00 sp3 06/20 21:49 Order name: Labs collected and sent; Complete Time: 22:00 sp3 06/20 21:49 Order name: O2 Per Protocol; Complete Time: 22:00 sp3 06/20 21:49 Order name: O2 Sat Monitoring; Complete Time: 22:00 3 Administered Medications: 06/20 22:38 Drug: Ondansetron IVP 4 mg IVP once; over 2 minutes Route: IVP; Site: right antecubital;cp4 23:21 Follow up: Response: No adverse reaction cp4 22:38 Drug: Nitroglycerin Sublingual 0.4 mg Sublingual once Route: Sublingual; cp4 23:21 Follow up: Response: No adverse reaction cp4 22:39 Drug: morphine IVP or IV 2 mg IVP once over 4 mins Route: IVP; Infused Over: 4 mins; cp4 Site: right antecubital; 23:21 Follow up: Response: No adverse reaction cp4 06/21 01:22 Drug: Ativan IVP 2 mg IVP once Route: IVP; Site: right antecubital; br2 03:33 Follow up: Response: No adverse reaction br2 01:22 Drug: Meclizine PO 25 mg PO once Route: PO; br2 03:33 Follow up: Response: No adverse reaction br2 Disposition Summary: 06/21/24 00:12 Hospitalization Ordered Notes: Hospitalization Status: Observation sp3 Provider: Sung Turcios Condition: Stable sp3 Problem: an acute exacerbation sp3 Symptoms: have worsened sp3 Bed/Room Type: Standard sp3 Location: Telemetry/MedSurg (observation)(06/21/24 15:55) bd Room Assignment: 430(06/21/24 15:55) bd Diagnosis - Chest pain sp3 Forms: - Medication Reconciliation Form sp3 - SBAR form sp3 - Leadership Thank You Letter sp3 Signatures: Dispatcher [employer] EDMS Jessika Carey Heather, RN RN hb Patel, Setul, MD MD sp3 Unique Hinds RN RN Etelvina Yap cp4 Rossy Cotter RN RN br2 Corrections: (The following items were deleted from the chart) 06/20 21:50 21:49 BASIC METABOLIC PANEL+C.LAB.BRZ ordered. EDMS EDMS 21:50 21:50 CBC+H.LAB.BRZ ordered. EDMS EDMS 21:50 21:50 HEPATIC FUNCTION+C.LAB.BRZ ordered. EDMS EDMS 21:50 21:50 MAGNESIUM+C.LAB.BRZ ordered. EDMS EDMS 21:50 21:50 PROBNP+C.LAB.BRZ ordered. EDMS EDMS 21:50 21:50 PROTIME (+INR)+COAG.LAB.BRZ ordered. EDMS EDMS 21:50 21:50 Troponin High Sensitivity+C.LAB.BRZ ordered. EDMS EDMS 21:50 21:50 Chest Single View+RAD.RAD.BRZ ordered. EDMS EDMS 06/21 01:30 00:12 Telemetry/MedSurg (observation) sp3 vc1 01:30 00:12 sp3 vc1 15:55 01:30 [facility] ER HOLD vc1 bd 15: 01:30 ERHOLD- vc1 bd
--- NOTE | 2024-06-21 00:12 | ER ---
Nurse's Notes [facility] Name: Liane Connolly Age: 64 yrs Sex: Female : 1960 Arrival Date: 06/20/2024 Time: 21:43 Bed 24 Private MD: Diagnosis: Chest pain Presentation: 06/20 21:55 Chief complaint: Midsternal chest pain that radiates to back, nausea, and SOB x 1 hr. hb Hx of HTN. Coronavirus screen: At this time, the client does not indicate any symptoms associated with coronavirus-19. Ebola Screen: No symptoms or risks identified at this time. Initial Sepsis Screen: Does the patient meet any 2 criteria? No. Patient's initial sepsis screen is negative. Does the patient have a suspected source of infection? No. Patient's initial sepsis screen is negative. Risk Assessment: Do you want to hurt yourself or someone else? Patient reports no desire to harm self or others. Onset of symptoms was June 20, 2024. 21:55 Method Of Arrival: Ambulatory hb 21:55 Acuity: ESAU 3 hb Historical: - Allergies: 21:56 AVALOX; hb - PMHx: 21:56 diabetes mellitus; GERD; Hypertensive disorder; hb - PSHx: 21:56 Cholecystectomy; hb - Immunization history:: Adult Immunizations up to date. - Infectious Disease History:: Denies. - Social history:: Smoking status: Patient denies any tobacco usage or history of. Screenin:01 [facility] ED Fall Risk Assessment (Adult) History of falling in the last 3 months, cp4 including since admission No falls in past 3 months (0 pts) Confusion or Disorientation No (0 pts) Intoxicated or Sedated No (0 pts) Impaired Gait No (0 pts) Mobility Assist Device Used No (0 pt) Altered Elimination No (0 pt) Score/Fall Risk Level 0 - 2 = Low Risk Oriented to surroundings, Maintained a safe environment, Assessed \T\ reinforced patient's understanding of fall precautions, Hourly rounding (assess needs \T\ fall precautionary measures) done. Abuse screen: Denies threats or abuse. Denies injuries from another. Nutritional screening: No deficits noted. Tuberculosis screening: No symptoms or risk factors identified. Assessment: 22:01 General: Appears in no apparent distress. uncomfortable, Behavior is calm, cooperative, cp4 appropriate for age. Pain: Complains of pain in chest Pain does not radiate. Pain currently is 10 out of 10 on a pain scale. Pain began suddenly, 1 hour ago. Neuro: Level of Consciousness is awake, alert, obeys commands, Oriented to person, place, time, situation. Cardiovascular: Patient's skin is warm and dry. Rhythm is sinus rhythm. Respiratory: Airway is patent Respiratory effort is even, unlabored. GI: No signs and/or symptoms were reported involving the gastrointestinal system. : No signs and/or symptoms were reported regarding the genitourinary system. EENT: No signs and/or symptoms were reported regarding the EENT system. Derm: No signs and/or symptoms reported regarding the dermatologic system. Musculoskeletal: No signs and/or symptoms reported regarding the musculoskeletal system. 22:55 Reassessment: Patient appears in no apparent distress at this time. Patient and/or cp4 family updated on plan of care and expected duration. Pain level reassessed. Patient is alert, oriented x 3, equal unlabored respirations, skin warm/dry/pink. Vital Signs: 21:55 BP 174 / 85; Pulse 84; Resp 14; Temp 97.8(TE); Pulse Ox 100% on R/A; Weight 74.84 kg; hb Height 5 ft. 4 in. ; Pain 8/10; 22:55 BP 152 / 75; Pulse 77; Resp 16; Pulse Ox 100% ; cp4 21:55 Body Mass Index 28.32 (74.84 kg, 162.56 cm) hb 21:55 Pain Scale: Adult hb ED Course: 21:44 Patient arrived in ED. im 21:48 Comfort Marte MD is Attending Physician. sp3 21:56 Triage completed. hb 21:56 Arm band placed on. hb 21:56 EKG done, by ED staff. hb 22:01 Placed in gown. Bed in low position. Call light in reach. Side rails up X2. Client cp4 placed on continuous cardiac and pulse oximetry monitoring. NIBP monitoring applied. chucking machine operator on. Pulse ox on. NIBP on. 22:01 No provider procedures requiring assistance completed. Inserted saline lock: 20 gauge cp4 in right antecubital area, using aseptic technique. Blood collected. Flushed with 10 mL NS. Patient maintains SpO2 saturation greater than 95% on room air. 22:10 Radiology exam delayed due to lab results not completed at this time. (BUN/Creatinine). sm9 22:22 XRAY Chest (1 view) In Process Unspecified. EDMS 22:55 Etelvina Connelly is Primary Nurse. cp4 23:14 CT Chest, Abdomen, Pelvis - W/Contrast In Process Unspecified. EDMS 06/21 00:12 Sung Turcios MD is Hospitalizing Provider. sp3 Administered Medications: 06/20 22:38 Drug: Ondansetron IVP 4 mg IVP once; over 2 minutes Route: IVP; Site: right antecubital;cp4 23:21 Follow up: Response: No adverse reaction cp4 22:38 Drug: Nitroglycerin Sublingual 0.4 mg Sublingual once Route: Sublingual; cp4 23:21 Follow up: Response: No adverse reaction cp4 22:39 Drug: morphine IVP or IV 2 mg IVP once over 4 mins Route: IVP; Infused Over: 4 mins; cp4 Site: right antecubital; 23:21 Follow up: Response: No adverse reaction cp4 06/21 01:22 Drug: Ativan IVP 2 mg IVP once Route: IVP; Site: right antecubital; br2 03:33 Follow up: Response: No adverse reaction br2 01:22 Drug: Meclizine PO 25 mg PO once Route: PO; br2 03:33 Follow up: Response: No adverse reaction br2 Medication: 06/20 22:01 VIS not applicable for this client. cp4 Outcome: 06/21 00:12 Decision to Hospitalize by Provider. sp3 18:11 Patient left the ED. ss Signatures: Dispatcher [employer] VICTOR HUGOVA Tiara Liu, RN RN Susana Harrison RN Comfort Montero MD MD sp3 Tess Evans Christina cp4 Carolina Kern sm9 Rossy Cotter RN RN br2
--- NOTE | 2024-06-21 00:13 | RAD REPORT ---
PROCEDURE: Chest Abdomen Pelvis W Cont CLINICAL HISTORY: epigastric pain; Chest pain TECHNIQUE: Contiguous axial images obtained through the chest , abdomen and pelvis following the uneventful admi nistration of IV contrast. Coronal and sagittal reformatted images provided. This exam was performed according to our departmental dose-optimization program, which includes autom ated exposure control, adjustment of the mA and/or kV according to patient size and/or use of iterative reconstruction technique. COMPARISON: December 22, 2023 FINDINGS: Lungs: No focal consolidation. Airways are patent. Small sveta fissural nodule bordering the right upp er lobe, consistent with intrapulmonary lymph node for which no follow-up imaging is indicated. Pleura: No effusion. No pneumothorax. Heart and pericardium: The heart is normal in size. No pericardial effusion. Mediastinum and [place]: No pathologically enlarged lymph nodes. Lower neck and chest wall: Unremarkable Vessels: Unremarkable Bones: Unremarkable Liver: Unremarkable Gallbladder and biliary system: Status post cholecystectomy. Mild intra and extrahepatic bile duct di latation likely manifesting the postcholecystectomy state, similar to the prior examination Pancreas: Unremarkable Spleen: Splenomegaly, the spleen measures approximately 14.8 cm longitudinally. Adrenals: Unremarkable Kidneys: No evidence of urolithiasis or obstructive uropathy. Gl : Small hiatal hernia. No obstruction. No appreciable mucosal thickening. Appendix: No findings to suggest acute appendicitis. Urinary bladder: Unremarkable Reproductive: Unremarkable as visualized Lymph nodes: Calcified peripancreatic node, similar to the prior examination Peritoneum: No focal fluid collection. No free air. Vessels: No abdominal aortic aneurysm. Abdominal wall: Unremarkable Bones: Unremarkable IMPRESSION: 1. No acute intrathoracic, intra-abdominal, or pelvic disease. 2. Splenomegaly. 3. Status post cholecystectomy. Mild intra and extrahepatic bile duct dilatation likely manifesting the postcholecystectomy state, similar to the prior examination. 4. Small hiatal hernia. Electronically signed by: David Torrez MD 06/20/2024 11:57 PM [facility] Due to temporary technical issues with the PACS/[employer] reporting system, reports are being jose luis d by the in-house radiologist without review as a courtesy to ensure prompt reporting the interpreting radiologist is fully responsible for the content of the report. Transcribed Date/Time: 06/21/2024 12:13 AM
[2024-06-21 00:48] LABS: Troponin High Sensitivity 4.1 pg/mL (<58.9)
[2024-06-21] MEDS ORDERED: LORazepam 2 MG/ML VIAL ONE (01:12)
[2024-06-21] MEDS ORDERED: MECLIZINE HCL 12.5 MG TAB ONE (01:12)
[2024-06-21 01:45] VITALS: BMI 26.6
[2024-06-21] MEDS ORDERED: MORPHINE 4 MG/ML SYR ONE ×2 (08:18→18:02)
[2024-06-21] MEDS ORDERED: ALPRAZOLAM 0.25 MG TABLET ONE (08:19)
[2024-06-21] MEDS ORDERED: ONDANSETRON 4 MG/2 ML VIAL ONE ×2 (08:20→18:02)
[2024-06-21] MEDS ORDERED: ASPIRIN EC 81 MG TAB PO ONE (08:22)
[2024-06-21] MEDS: ONDANSETRON 4 MG/2 ML VIAL IV PRN (08:32)
[2024-06-21] MEDS: ALPRAZOLAM 0.25 MG TABLET PO PRN (08:32)
[2024-06-21] MEDS: ASPIRIN EC 81 MG TAB PO SCH (08:32)
[2024-06-21] MEDS: MORPHINE 4 MG/ML SYR IV PRN (09:15)
--- NOTE | 2024-06-21 11:55 | P.CNS ---
Date of Consult: 06/21/24 Chief Complaint: chest pain History of Present Illness: Patient with PMH of HTN, Anxiety presented with chest pain, epigastric in nature, associated with diapharesis and nausea, denies any other cardiac symptoms. Allergies moxifloxacin Allergy (Verified 12/22/23 17:58) Anaphylaxis Home medications list reviewed: Yes Home Medications: Alprazolam [Xanax] 0.5 mg PO Q8H 12/22/23 RX: Losartan Potassium 25 mg PO DAILY 12/22/23 Sertraline [Zoloft] 100 mg PO DAILY 12/22/23 Tirzepatide [Mounjaro] 5 mg SQ 1X 12/22/23 Zolpidem Tartrate [Ambien] 10 mg PO BEDTIME 12/22/23 Aspirin [Aspirin EC] 1 tab PO DAILY 06/21/24 Atorvastatin Calcium [Lipitor] 1 tab PO BEDTIME 06/21/24 Pantoprazole Sodium [Protonix] 40 mg PO DAILY 06/21/24 RX: Meclizine HCl 1 tab PO Q8HR PRN 06/21/24 - Past Medical/Surgical History -: DM Review of Systems 10-point ROS is otherwise unremarkable Physical Examination Temp Pulse Resp BP Pulse Ox 98.0 F 76 16 131/74 97 06/21/24 08:00 06/21/24 08:00 06/21/24 09:15 06/21/24 08:00 06/21/24 09:15 General: Alert, In no apparent distress HEENT: Atraumatic, PERRLA, Mucous membr. moist/pink, EOMI, Sclerae nonicteric Neck: Supple, 2+ carotid pulse no bruit, No LAD, Without JVD or thyroid abnormality Respiratory: Clear to auscultation bilaterally, Normal air movement Cardiovascular: Regular rate/rhythm, Normal S1 S2 Gastrointestinal: Normal bowel sounds, No tenderness Musculoskeletal: No tenderness Integumentary: No rashes Neurological: Normal gait, Normal speech, Normal tone, Normal affect Lymphatics: No axilla or inguinal lymphadenopathy Laboratory Data (last 24 hrs) 06/20/24 06/20/24 06/20/24 22:00 22:00 22:00 WBC 5.10 Hgb 14.5 Hct 42.5 Plt Count 145 L PT 12.9 H INR 1.23 Sodium 130 L Potassium 3.5 BUN 10 Creatinine 0.86 Glucose 117 H Magnesium 1.8 Total Bilirubin 0.9 AST 15 ALT 21 Alkaline Phosphatase 56 Lipase 25 - Problems (1) Chest pain Current Visit: Yes Status: Acute Plan: concern for angina, NPO after midnight for coronary angiogram in am ASA 81 mg daily Lipitor 40 mg daily (2) HTN (hypertension) Current Visit: Yes Status: Acute Plan: reconcille and continue home medications
[2024-06-21] MEDS: PANTOPRAZOLE 40MG TABLET PO ONE (13:00)
[2024-06-21] MEDS ORDERED: PANTOPRAZOLE 40MG TABLET PO ONE (13:20)
[2024-06-21] MEDS ORDERED: ALPRAZOLAM 0.5 MG TABLET ONE (13:20)
[2024-06-21] MEDS: ALPRAZOLAM 0.5 MG TABLET PO PRN (13:22)
[2024-06-21] MEDS: MECLIZINE HCL 12.5 MG TAB PO PRN (21:44)
[2024-06-21] MEDS: ZOLPIDEM TARTRATE 10 MG TABLET PO PRN (21:44)
[2024-06-21] MEDS: ATORVASTATIN 10 MG TAB PO SCH (22:10)
--- OUTSIDE RECORDS SUMMARY | 2024-06-22 02:04 | XMS REPORT | Continuity of Care Document ---
Author Name Unknown Address [address] [place] [address] [place] [address] [employer] Address [address] [place] [address] [address] [place] [address] Care Team Providers Care Paper Folder Name Role Phone Unavailable Unavailable Unavailable
[2024-06-22] MEDS: PANTOPRAZOLE 40MG TABLET PO SCH (05:12)
--- NOTE | 2024-06-22 05:47 | HP ---
Date of Admission: 06/21/2024 Chief Complaint: Chest pain. History Of Present Illness: This is a 64-year-old pleasant female patient, who came into emergency room last night with complaints of chest pain. Sometime yesterday afternoon, she started to have this chest pain in the center of her chest radiating to her back and pain was intermittent after lasting for few minutes, it would go away, but then later on when she had this chest pain, it did not go away and that is the time she decided to come to emergency room. Denies any associated shortness of breath or diaphoresis. Her pain did resolve after she came to emergency room and received morphine. I was contacted from emergency room requesting admission to hospital and when I saw her this morning, she was in emergency room lying in bed, not in distress, asymptomatic as far as chest pain is concerned. Allergies: TO MOXIFLOXACIN CAUSING RASH AND HIVES. Medications: Alprazolam 0.5 mg 3 times a day as needed for anxiety, atorvastatin 10 mg daily at bedtime, vitamin D3 5000 units daily, losartan 25 mg daily, sertraline 100 mg 2 times a day, Mounjaro 5 mg subcutaneous injection once a week, zolpidem 10 mg at bedtime, aspirin 81 mg daily. Review of Systems: Cardiovascular: As mentioned above. Psychiatry: Anxiety problem which is chronic. All other systems reviewed and negative. Past Medical History: Significant for hypertension, type 2 diabetes mellitus, mixed hyperlipidemia, gastroesophageal reflux disease, known alcoholic fatty liver disease, insomnia, anxiety, and depression. Past medical history also significant for allergic rhinitis and vitamin D deficiency. Past Surgical History: Removal of wisdom teeth and cholecystectomy. Family History: Father had hyperlipidemia, sleep apnea, and gout. Mother had liver cancer and rectal cancer and thyroid disorder. Social History: Negative for smoking and alcohol use. Physical Examination: Vital Signs: Temperature 97.2, pulse 87, respiratory rate 16, blood pressure 126/73, oxygen saturation 98% on room air. Height 5 feet 6 inches, weight 165 pounds. General: Awake, alert, oriented, not in distress. HEENT: Head atraumatic, normocephalic. Conjunctivae nonerythematous. Sclerae white. Mouth, no thrush or edema noted. Ears/Nose, no mass, lesion, discharge noted. Neck: Supple. No JVD, lymph nodes, bruit, thyromegaly noted. Lungs: Bilateral good equal air entry. Clear to auscultation. No rhonchi. No rales. Heart: Normal heart sounds, no murmur or gallop. Abdomen: Soft, bowel sounds normal. No guarding, rigidity, tenderness, mass, hepatosplenomegaly, distention, or bruit noted. Extremities: No leg edema. No calf tenderness. Skin: No rash, ulcer, cellulitis. Lymphatics: No lymph node enlargement in neck, supraclavicular, infraclavicular region. Neuro: No focal neurological deficit. Chest: Unremarkable. External Genitalia: Deferred. Rectal: Deferred. Laboratory Data: EKG, normal sinus rhythm, no acute ST-T changes noted. WBC 5.1, hemoglobin 14.5, platelets 145. Sodium 130, potassium 3.5, chloride 98, bicarb 22, BUN 10, creatinine 0.86, glucose 117. Liver function tests unremarkable. Troponin 3.6 on the first set, second set 4.1, third set 6.5. Lipase 25 on the first set, second set 24. CT scan of the chest, abdomen, and pelvis shows no acute intrathoracic, intraabdominal, or pelvic findings. Evidence of splenomegaly and small hiatal hernia. Chest x-ray, no acute intrathoracic changes. Impression: 1. Chest pain. 2. Hypertension. 3. Type 2 diabetes mellitus. 4. Mixed hyperlipidemia. 5. Gastroesophageal reflux disease. 6. Anxiety. 7. Depression. 8. Insomnia. 9. Vitamin D deficiency. 10. Known alcoholic fatty liver disease. Plan: We will go ahead and admit the patient to hospital for further evaluation and management of this problem. The patient had normal echocardiogram done with ejection fraction 60% to 65% with trace mitral and tricuspid regurgitation and this was done in March 2024 on outpatient basis with marketing admin's office and I have reviewed with that office record. She also reports she had a normal stress test sometime last year in November of 2023 with marketing admin. The patient had 2 EGD done in last couple of months, last EGD was this month and findings reviewed from outpatient office record which shows evidence of esophagitis and gastritis. Her MN has been ruled out and Dr. Freire was consulted from Cardiology Service. We will follow up with him regarding further recommendation and treatment plan. For hypertension, no need for further intervention except monitoring and making adjustment on her blood pressure medication. For hyperlipidemia, we will continue her statin therapy per order. For anxiety, she takes alprazolam and we will continue that as per order and no need for further intervention. For depression, she takes sertraline, which we will continue that. The patient takes zolpidem on a regular basis because of her insomnia and we will continue that as well. For diabetes, she takes Mounjaro, and no need for any further intervention for it. She has responded very well to that. Details and plan of treatment discussed with her. Total time spent was 80 minutes including review of last office visit record from 03/01/2024, review of last hospital admission record from 12/22/2023, review of outpatient echocardiogram and EGD report, communication with emergency room physician, review of current emergency room visit record, and performing today's evaluation and management. YARELY/ARACELY Voice ID: [id number] MTDSonia
[2024-06-22 07:37] LABS: Absolute Lymphocytes (CBC) 2.3 K/uL (0.7-4.9); Absolute Monocytes 0.4 K/uL (0.1-1.3); Absolute Neutrophil 1.6 K/uL (1.8-8.0); Basophils % 1.1 % (0-1.3); Eosinophils % 0.9 % (0-4.4); Hemoglobin 13.3 g/dL (12.0-15.0); Lymphocytes % 52.8 % (15.3-44.8); MCH 30.2 pg (27.0-35.0); MCHC 34.1 g/dL (32.0-36.0); MCV 88.6 fL (80-100); Monocytes % 8.2 % (3.3-12.3); Nucleated Red Blood Cells % 0.1 % (0-0); Platelets 142 thou/uL (152-406); Red Cell Distribution Width 14.3 % (12.1-15.2)
[2024-06-22 07:58] LABS: Anion Gap 9.5 mEq/L (5.0-15.0); Potassium 3.5 mEq/L (3.5-5.1)
[2024-06-22] MEDS ORDERED: NA CHLORIDE 0.9% 500 ML ONE (08:05)
[2024-06-22 08:49] VITALS: TEMP 97.7
[2024-06-22] MEDS ORDERED: HEPA 1000U/500MLS 2,000 UNIT/1,000 ML BAG IV ONE (09:08)
[2024-06-22] MEDS ORDERED: LIDOCAINE 1% 20 ML MDV ONE (09:08)
[2024-06-22] MEDS ORDERED: HEPARIN 10,000 UNIT/10 ML VIAL IV ONE (09:08)
[2024-06-22] MEDS ORDERED: HEPARIN 5000 UNIT/ML 1 ML VIAL ONE (09:09)
[2024-06-22] MEDS ORDERED: MIDAZOLAM HCL 2 MG/2 ML INJ ONE (09:09)
[2024-06-22] MEDS ORDERED: CLOPIDOGREL 75 MG TABLET ONE (09:09)
[2024-06-22] MEDS ORDERED: ATROPINE SULF 1 MG/10 ML SYR IV ONE (09:09)
[2024-06-22] MEDS ORDERED: ASPIRIN 325 MG TAB ONE (09:10)
[2024-06-22] MEDS ORDERED: FENTANYL CITR 100 MCG/2 ML ONE (09:10)
[2024-06-22] MEDS ORDERED: TICAGRELOR 90 MG TABLET PO ONE (09:10)
--- NOTE | 2024-06-22 10:07 | P.PN ---
Subjective Date of Service: 06/22/24 Chief Complaint: chest pain Subjective: No new changes, No C/O voiced, Tolerating diet, Ambulating, Improving Review of Systems 10-point ROS is otherwise unremarkable Physical Examination - Vital Signs Temperature: 97.7 F Blood Pressure: 106/61 Pulse: 51 Respirations: 16 Pulse Ox (%): 95 - Physical Exam General: Alert, In no apparent distress HEENT: Atraumatic, PERRLA, EOMI Neck: Supple, JVD not distended Respiratory: Clear to auscultation bilaterally, Normal air movement Cardiovascular: Regular rate/rhythm, Normal S1 S2 Gastrointestinal: Normal bowel sounds, No tenderness Musculoskeletal: No tenderness Integumentary: No rashes Neurological: Normal speech, Normal tone, Normal affect Lymphatics: No axilla or inguinal lymphadenopathy - Studies Medications List Reviewed: Yes Assessment And Plan - Current Problems (Diagnosis) (1) Chest pain Current Visit: Yes Status: Acute Plan: Coronary angiogram done and shows normal coronaries ASA 81 mg daily Lipitor 40 mg daily patient need to be worked up for other reasons of chest pain like gastric/anxiety (2) HTN (hypertension) Current Visit: Yes Status: Acute Plan: reconcille and continue home medications
[2024-06-22 11:06] VITALS: O2SAT 93
[2024-06-22] MEDS ORDERED: ONDANSETRON 4 MG/2 ML VIAL ONE (11:46)
[2024-06-22 12:58] VITALS: BP 107/64
--- NOTE | 2024-06-22 22:58 | OP ---
Date of Procedure: 06/22/2024 Surgeon: Long Freire Procedures Performed: Left heart catheterization with selective coronary angiogram. Indication For Procedure: Concern for unstable angina. Complications: None. Estimated Blood Loss: Less than 50 cc. Access: Right radial, closed by TR band. Sedation Time: 20 minutes with 1 of Versed and 50 of fentanyl. Description Of Procedure: After risks, benefits, and alternatives were explained to the patient, the patient agreed to proceed with procedure and signed informed consent. The patient was brought back to the cath lab tech, prepped and draped in sterile fashion. Time-out was performed. Sedation was admini stered. Next, right radial access was obtained using ultrasound-guided micropuncture technique. Tig er 4 catheter was advanced over J-wire to the LV cavity. LVEDP was obtained. Pullback did not show any gradient. Same catheter was used for selective angiogram of the left and right coronary systems. At the end of procedure, catheter was removed over a J-wire. Sheath was removed. TR band was appl ied. Hemostasis was achieved and the patient was moved back to Recovery in stable condition. Findings: 1. Left main normal. 2. LAD normal. 3. Left circ normal. 4. RCA normal. 5. LVEDP 12 mmHg. Assessment And Plan: Normal coronaries with normal filling pressures. The plan will be to continue medical management. HUMERA/ARACELY Voice ID: [id number] Report ID: [id number]
--- NOTE | 2024-06-23 02:30 | DS ---
Date of Discharge: 06/22/2024 Disposition: Discharged to go home. Physical Examination: HEENT: Unremarkable. Lungs: Clear to auscultation. Heart: Sounds normal. Abdomen: Soft. Bowel sounds normal. No guarding, rigidity, tenderness, distention. Extremities: No leg edema. Discharge Medications And Instructions: 1. Continue all prior home medication. 2. Follow up at my office next week. 3. Do not lift anything heavier than a glass of water with your hand and do not push or pull anything with your hand. 4. Do not take any aspirin, Aleve, or Motrin type of medications. Hospital Course: This is a 64-year-old pleasant female patient, came into emergency room with compla ints of chest pain. Please see dictated H and P for more information. After the patient was evaluat ed in emergency room, she was admitted to hospital. Her AR was ruled out by getting serial cardiac e nzymes and Cardiology consultation was obtained from Dr. Freire. Dr. Freire saw her yesterday and he scheduled her to have cardiac cath which was done today. Her cardiac cath was reported as normal, n o intervention needed, and after the procedure, yarrow gatherer cleared her for discharge. Medically, s he was stable for discharge, so she was discharged to go home with above-mentioned medications and in structions. Discharge Diagnoses: 1. Chest pain. 2. Hypertension. 3. Type 2 diabetes mellitus. Laboratory Data: , . Total time spent today 40 minutes. YARELY/MODL Voice ID: [id number] Report ID: [id number]
== END 2024-06-22 15:40 | disposition home or self-care (01) | DRG 287 ==
LOC: ER 21:43 → ERHOLD 06-21 00:03 → 4TH 06-21 18:39 → OBSVTOIN 06-22 14:25
PROVIDERS: ADMIT Internal Medicine; ATTEND Internal Medicine
PROC: B2111ZZ Fluoroscopy of Multiple Coronary Arteries using Low Osmolar Contrast (ICD-10-PCS; principal; 2024-06-22)
PROC: 4A023N7 Measurement of Cardiac Sampling and Pressure, Left Heart, Percutaneous Approach (ICD-10-PCS; 2024-06-22)
DX: R07.9 Chest pain, unspecified (principal); E11.9 Type 2 diabetes mellitus without complications; I10 Essential (primary) hypertension; E78.2 Mixed hyperlipidemia; F41.9 Anxiety disorder, unspecified; F32.A Depression, unspecified; G47.00 Insomnia, unspecified; E55.9 Vitamin D deficiency, unspecified; K70.0 Alcoholic fatty liver; K21.9 Gastro-esophageal reflux disease without esophagitis; Z88.8 Allergy status to other drugs, medicaments and biological substances; Z79.82 Long term (current) use of aspirin; Z90.49 Acquired absence of other specified parts of digestive tract; Z79.899 Other long term (current) drug therapy
CPT/HCPCS: 36415; 71045; 71260; 74177; 76937; 80048; 80061; 80076; 82947; 83690; 83735; 83880; 84484; 85025; 85610; 93458; 96374; 96375; 99152; 99153; 99285; C1893; G0378; J0461; J1644; J2003; J2250; J2270; J2405; J3010; J7040; J8597; Q9966; Q9967

== ENCOUNTER 2025-02-22 23:09 | Emergency (ER) | payer OTHER ==
--- OUTSIDE RECORDS SUMMARY | 2025-02-22 23:11 | XMS REPORT | Continuity of Care Document ---
Author Name Unknown Address [address] [place], [place] [address] Address [address] [place] [address] [place] [id number] Care Team Providers Care It Project Manager Name Role Phone Unavailable Unavailable Unavailable
[2025-02-22] MEDS ORDERED: ASPIRIN 81 MG CHEWABLE TABLET ONE (23:36)
[2025-02-22 23:41] LABS: Absolute Lymphocytes (CBC) 1.1 K/uL (0.7-4.9); Hematocrit 41.8 % (36.0-45.0); Hemoglobin 14.4 g/dL (12.0-15.0); MCH 30.0 pg (27.0-35.0); MCHC 34.4 g/dL (32.0-36.0); MCV 87.2 fL (80-100); MPV 8.0 fL (7.6-11.3); Nucleated RBC Absolute Count 0.0 (0-0); Nucleated Red Blood Cells % 0.2 % (0-0); RBC Red Blood Cell Count 4.79 M/uL (3.86-4.86); White Blood Count 5.00 thou/uL (4.3-10.9)
[2025-02-23 00:01] LABS: Anion Gap 11.2 mEq/L (5.0-15.0); BUN Blood Urea Nitrogen 11.0 mg/dL (7-18); Glucose Level 111.0 mg/dL (74-106); NT PRO-BNP 55.0 pg/mL (<125); Potassium 3.2 mEq/L (3.5-5.1); Troponin High Sensitivity 3.7 pg/mL (<58.9)
[2025-02-23] MEDS ORDERED: FAMOTIDINE 20 MG/2 ML VIAL IV ONE (00:15)
[2025-02-23] MEDS ORDERED: LORazepam 2 MG/ML VIAL ONE (00:15)
[2025-02-23] MEDS ORDERED: MAGNES/ALUMIN/SIMET 30ML UCUP ONE (00:15)
[2025-02-23] MEDS ORDERED: ONDANSETRON 4 MG/2 ML VIAL ONE (00:15)
[2025-02-23 00:28] LABS: Lipase 23.0 U/L (13-75)
--- NOTE | 2025-02-23 02:39 | EDPHYS ---
Physician Documentation [facility] Name: Liane Connolly Age: 65 yrs Sex: Female : 1960 Arrival Date: 02/22/2025 Time: 23:09 Bed 20 Private MD: ED Physician Jeramie Monahan HPI: 02/23 03:16 This 65 yrs old Female presents to ER via Wheelchair with complaints of Chest Pain. tt7 03:16 Chest pain started 1 hour prior to arrival, radiated to the left side of her jaw, tt7 associated nausea and anxiety. She reports the pain is a tightness. Reports recently experienced the of her close friend as well as found out about a terminal cancer diagnosis and her other best friend. Past medical history includes diabetes, GERD, hypertension. Pain is mild in severity. Historical: - Allergies: 02/22 23:31 AVALOX; vc1 - PMHx: 23:31 diabetes mellitus; GERD; Hypertensive disorder; vc1 - PSHx: 23:31 Cholecystectomy; vc1 - Immunization history:: Client reports receiving the 2nd dose of the Covid vaccine, Flu vaccine is not up to date. - Infectious Disease History:: Denies. - Social history:: Smoking status: Patient denies any tobacco usage or history of. ROS: 02/23 05:39 Constitutional: negative for fever. Respiratory: negative for shortness of breath. tt7 MS/Extremity: negative for injury and deformity. Skin: negative for rash. Neuro: negative for focal weakness. Cardiovascular: Positive for chest pain, Negative for palpitations, Abdomen/GI: Positive for nausea, Negative for vomiting, Exam: 05:39 Constitutional: vital signs reviewed, well appearing. Head/Face: normocephalic, tt7 atraumatic. Eyes: no conjunctival injection, anicteric sclerae. ENT: mucus membranes moist. Neck: trachea midline, no JVD, no meningismus. Chest/axilla: normal chest wall appearance and motion, nontender, no crepitus. Cardiovascular: regular rate and rhythm, no murmurs, no rubs, no lower extremity edema. Respiratory: normal respiratory effort, no accessory muscle use, lungs CTAB. Abdomen/GI: soft, nondistended, nontender, no guarding or rebound, negative Lopez's sign, no McBurney point tenderness. Back: normal ROM. Skin: warm, dry, intact, normal turgor, normal color, no rash. MS/ Extremity: normal ROM of extremities, no gross deformities. Neuro: alert and oriented with appropriate mental status, normal speech, follows commands, no focal neurologic deficits. Psych: anxious Vital Signs: 02/22 23:28 BP 166 / 86; Pulse 70; Resp 15; Temp 99.2; Pulse Ox 99% ; Weight 74.84 kg; Height 5 ft. vc1 6 in. ; 02/23 00:27 BP 149 / 72; Pulse 69; Resp 18; Pulse Ox 97% ; cp4 01:48 BP 143 / 73; Pulse 75; Resp 18; Pulse Ox 98% ; cp4 02:30 BP 160 / 86; Pulse 90; Resp 18; Pulse Ox 97% ; cp4 03:30 BP 134 / 72; Pulse 89; Resp 18; Pulse Ox 97% ; cp4 02/22 23:28 Body Mass Index 26.63 (74.84 kg, 167.64 cm) vc1 MDM: 02/22 23:26 Medical Screening Exam initiated tt7 02/23 05:40 Differential diagnosis: abnormal EKG, acute myocardial infarction, anxiety, chest wall tt7 pain, costochondritis, gastritis, gastroesophageal reflux disease (GERD), pancreatitis, pneumonia, pneumothorax. HEART Score: History: Slightly Suspicious (0), ECG: Normal (0), Age: > or = 65 years (2), Risk Factors: 1 or 2 risk factors (1), Troponin: < or = 1 x Normal Limit (0), Total Score = 3. The patient was given aspirin in the Emergency Department. Data reviewed: vital signs, nurses notes, lab test result(s), EKG, radiologic studies. Counseling: I had a detailed discussion with the patient and/or guardian regarding the historical points, exam findings, and any diagnostic results supporting the discharge/admit diagnosis, lab results, radiology results, the need for outpatient follow up, to return to the emergency department if symptoms worsen or persist or if there are any questions or concerns that arise at home. ED course: 65-year-old female with chest pain, low suspicion for ACS, vital signs stable, physical exam reassuring, I independently interpreted the patient's EKG performed on 02/22/2025 at 2323. On my interpretation, EKG demonstrates normal sinus rhythm, ventricular rate 64 bpm, normal axis, normal QRS interval, normal ST segments, T wave inversions in V2 V3 V4, no STEMI, low risk heart score of 3, serial troponins negative, symptoms improved with medications, after completion of the patient's emergency department evaluation, I do not suspect a life-threatening or disabling process. Patient is medically stable and not in need of emergent medical intervention. I had a detailed discussion with the patient regarding the historical points, exam findings, emergency department evaluation, diagnostic results, and the discharge diagnosis. I instructed the patient on outpatient management of their condition. I discussed the need for outpatient follow-up with a primary care physician. I informed the patient on return precautions, including the need to return to the ED if symptoms do not improve, worsen, or if there are any questions or concerns that arise at home. The patient was discharged in stable condition. 02/22 23:26 Order name: Basic Metabolic Panel; Complete Time: 00:33 tt7 02/22 23:26 Order name: CBC with Diff; Complete Time: 00:01 tt7 02/22 23:26 Order name: NT PRO-BNP; Complete Time: 00:33 tt7 02/22 23:26 Order name: Troponin HS; Complete Time: 00:33 tt7 02/23 00:24 Order name: Lipase; Complete Time: 00:33 EDMS 02/23 01:40 Order name: Troponin High Sensitivity; Complete Time: 02:37 tt7 02/22 23:26 Order name: XRAY Chest (1 view) tt7 02/22 23:26 Order name: EKG; Complete Time: 23:27 tt7 02/22 23:26 Order name: Cardiac monitoring; Complete Time: 23:29 tt7 02/22 23:26 Order name: EKG - Nurse/Tech; Complete Time: 23:29 tt7 02/22 23:26 Order name: IV Saline Lock; Complete Time: 23:29 tt7 02/22 23:26 Order name: Labs collected and sent; Complete Time: 23:29 tt7 02/22 23:26 Order name: O2 Per Protocol; Complete Time: 23:29 tt7 02/22 23:26 Order name: O2 Sat Monitoring; Complete Time: 23:29 tt7 Administered Medications: 02/22 23:43 Drug: Aspirin PO Chewable Tablet 324 mg PO once; 81 mg tablets x 4 Route: PO; cp4 02/23 00:20 Follow up: Response: No adverse reaction cp4 00:19 Drug: Alum-Mag Hydroxide-Simeth PO Suspension (200 mg-200 mg-20 mg/5 mL) 30 ml PO once cp4 Route: PO; 03:35 Follow up: Response: No adverse reaction; Pain is decreased cp4 00:19 Drug: Famotidine IVP 20 mg IVP once; dilute with 10 mL 0.9% NaCl; give over 2 minutes cp4 Route: IVP; Site: right antecubital; 03:35 Follow up: Response: No adverse reaction; Pain is decreased cp4 00:20 Drug: Ondansetron IVP 4 mg IVP once; over 2 minutes Route: IVP; Site: right antecubital;cp4 03:34 Follow up: Response: No adverse reaction; Nausea is decreased cp4 00:20 Drug: Ativan IVP 0.5 mg IVP once Route: IVP; Site: right antecubital; cp4 03:35 Follow up: Response: No adverse reaction; Anxiety decreased cp4 03:34 Drug: LORazepam PO 0.5 mg PO once Route: PO; cp4 03:35 Follow up: Response: No adverse reaction; Anxiety decreased cp4 Disposition: 05:44 Co-signature as Attending Physician, Jeramie Monahan DO. tt7 Disposition Summary: 02/23/25 02:38 Discharge Ordered Notes: Location: Home tt7 Problem: new tt7 Symptoms: have improved tt7 Condition: Stable tt7 Diagnosis - Chest pain, unspecified tt7 Followup: tt7 - With: Emergency Department - When: As needed - Reason: Followup: tt7 - With: Private Physician - When: 1 - 2 days - Reason: Recheck today's complaints, Re-evaluation by your physician Discharge Instructions: - Discharge Summary Sheet tt7 - Nonspecific Chest Pain, Adult, [id number] tt7 Forms: - Medication Reconciliation Form tt7 - Antibiotic Education tt7 - Prescription Opioid Use tt7 - Patient Portal Instructions tt7 - Leadership Thank You Letter tt7 Signatures: Dispatcher [employer] EDMS Unique Hinds RN RN Etelvina Yap cp4 Jeramie Monahan DO DO tt7 Corrections: (The following items were deleted from the chart) 02/22 23:27 23:27 BASIC METABOLIC PANEL+C.LAB.BRZ ordered. EDMS EDMS : 23:27 CBC+H.LAB.BRZ ordered. EDMS EDMS : 23:27 PROBNP+C.LAB.BRZ ordered. EDMS EDMS : 23:27 Troponin High Sensitivity+C.LAB.BRZ ordered. EDMS EDMS 02/23 00:24 00:09 LIPASE+C.LAB.BRZ ordered. EDMS EDMS 01:40 01:40 Troponin High Sensitivity+C.LAB.BRZ ordered. EDMS EDMS 03:24 03:16 . tt7 tt7
--- NOTE | 2025-02-23 02:39 | ER ---
Nurse's Notes [facility] Name: Liane Connolly Age: 65 yrs Sex: Female : 1960 Arrival Date: 02/22/2025 Time: 23:09 Bed 20 Private MD: Diagnosis: Chest pain, unspecified Presentation: 02/22 23:28 Chief complaint: Patient states: CP that started an hour prior to arrival radiates to vc1 left ear and jaw, describes as tightness. Nauseous and sweating INFORMATION COORDINATOR. Coronavirus screen: Client denies travel out of the [place] in the last 14 days. At this time, the client does not indicate any symptoms associated with coronavirus-19. Ebola Screen: Patient negative for fever greater than or equal to 101.5 degrees Fahrenheit, and additional compatible Ebola Virus Disease symptoms Patient denies exposure to infectious person. Patient denies travel to an Ebola-affected area in the 21 days before illness onset. No symptoms or risks identified at this time. Initial Sepsis Screen: Does the patient meet any 2 criteria? No. Patient's initial sepsis screen is negative. Does the patient have a suspected source of infection? No. Patient's initial sepsis screen is negative. Risk Assessment: Do you want to hurt yourself or someone else? Patient reports no desire to harm self or others. Onset of symptoms was February 22, 2025. 23:28 Method Of Arrival: Wheelchair vc1 23:28 Acuity: ESAU 3 vc1 23:35 Care prior to arrival: Medication(s) given: zofran 4 mg. vc1 Triage Assessment: 23:32 General: Appears in no apparent distress. uncomfortable, well groomed, well developed, vc1 well nourished, Behavior is calm, cooperative, appropriate for age. Pain: Complains of pain in mid-sternal area Pain radiates to left ear and left jaw Quality of pain is described as "tightness Pain began 1 hour ago. Is continuous, Also complains of nausea. EENT: No deficits noted. No signs and/or symptoms were reported regarding the EENT system. Neuro: Level of Consciousness is awake, alert, obeys commands, Oriented to person, place, time, situation, Appropriate for age. Cardiovascular: Heart tones S1 S2 present Capillary refill < 3 seconds Patient's skin is warm and dry. Chest pain is described as mild, quality is tightness. Respiratory: Airway is patent Respiratory effort is even, unlabored, Respiratory pattern is regular, symmetrical, Breath sounds are clear bilaterally. GI: No deficits noted. No signs and/or symptoms were reported involving the gastrointestinal system. : No deficits noted. No signs and/or symptoms were reported regarding the genitourinary system. Derm: Skin is intact, is healthy with good turgor, Skin is dry, Skin is normal, Skin temperature is warm. Musculoskeletal: Circulation, motion, and sensation intact. Range of motion: intact in all extremities. Historical: - Allergies: 23:31 AVALOX; vc1 - PMHx: 23:31 diabetes mellitus; GERD; Hypertensive disorder; vc1 - PSHx: 23:31 Cholecystectomy; vc1 - Immunization history:: Client reports receiving the 2nd dose of the Covid vaccine, Flu vaccine is not up to date. - Infectious Disease History:: Denies. - Social history:: Smoking status: Patient denies any tobacco usage or history of. Screenin/02 00:27 [facility] ED Fall Risk Assessment (Adult) History of falling in the last 3 months, cp4 including since admission No falls in past 3 months (0 pts) Confusion or Disorientation No (0 pts) Intoxicated or Sedated No (0 pts) Impaired Gait No (0 pts) Mobility Assist Device Used No (0 pt) Altered Elimination No (0 pt) Score/Fall Risk Level 0 - 2 = Low Risk Oriented to surroundings, Maintained a safe environment, Assessed \\T\\ reinforced patient's understanding of fall precautions, Hourly rounding (assess needs \\T\\ fall precautionary measures) done. Abuse screen: Denies threats or abuse. Denies injuries from another. Nutritional screening: No deficits noted. Tuberculosis screening: No symptoms or risk factors identified. Never had TB. Assessment: 00:27 General: Appears in no apparent distress. uncomfortable, Behavior is cooperative, cp4 appropriate for age, anxious. Pain: Complains of pain in face and left jaw and left ear and chest and mid-sternal area Pain does not radiate. Pain currently is 5 out of 10 on a pain scale. Pain began 2 hours ago. Neuro: Level of Consciousness is awake, alert, obeys commands, Oriented to person, place, time, situation. Cardiovascular: Patient's skin is warm and dry. Rhythm is sinus rhythm. Respiratory: Airway is patent Respiratory effort is even, unlabored. GI: No signs and/or symptoms were reported involving the gastrointestinal system. : No signs and/or symptoms were reported regarding the genitourinary system. EENT: No signs and/or symptoms were reported regarding the EENT system. Derm: No signs and/or symptoms reported regarding the dermatologic system. Musculoskeletal: No signs and/or symptoms reported regarding the musculoskeletal system. 01:30 Reassessment: Patient appears in no apparent distress at this time. Patient and/or cp4 family updated on plan of care and expected duration. Pain level reassessed. Patient is alert, oriented x 3, equal unlabored respirations, skin warm/dry/pink. 02:30 Reassessment: Patient appears in no apparent distress at this time. Patient and/or cp4 family updated on plan of care and expected duration. Pain level reassessed. Patient is alert, oriented x 3, equal unlabored respirations, skin warm/dry/pink. Vital Signs: 02/22 23:28 BP 166 / 86; Pulse 70; Resp 15; Temp 99.2; Pulse Ox 99% ; Weight 74.84 kg; Height 5 ft. vc1 6 in. ; 02/23 00:27 BP 149 / 72; Pulse 69; Resp 18; Pulse Ox 97% ; cp4 01:48 BP 143 / 73; Pulse 75; Resp 18; Pulse Ox 98% ; cp4 02:30 BP 160 / 86; Pulse 90; Resp 18; Pulse Ox 97% ; cp4 03:30 BP 134 / 72; Pulse 89; Resp 18; Pulse Ox 97% ; cp4 02/22 23:28 Body Mass Index 26.63 (74.84 kg, 167.64 cm) vc1 ED Course: 02/22 23:11 Patient arrived in ED. mr 23:26 Jeramie Monahan DO is Attending Physician. tt7 23:28 Etelvina Connelly is Primary Nurse. cp4 23:29 No provider procedures requiring assistance completed. Inserted saline lock: 20 gauge cp4 in right antecubital area, using aseptic technique. Blood collected. Flushed with 10 mL NS. Patient maintains SpO2 saturation greater than 95% on room air. 23:31 Triage completed. vc1 23:34 Arm band placed on right wrist. vc1 23:34 EKG done, by ED staff, reviewed by Jeramie Monahan DO. vc1 23:49 XRAY Chest (1 view) In Process Unspecified. EDMS 02/23 00:27 Bed in low position. Call light in reach. Side rails up X 1. Client placed on cp4 continuous cardiac and pulse oximetry monitoring. NIBP monitoring applied. radiation monitor on. Pulse ox on. NIBP on. 03:37 Provided Education on: chest pain. cp4 03:37 intact, bleeding controlled, No redness/swelling at site. Pressure dressing applied. cp4 Administered Medications: 02/22 23:43 Drug: Aspirin PO Chewable Tablet 324 mg PO once; 81 mg tablets x 4 Route: PO; cp4 02/23 00:20 Follow up: Response: No adverse reaction cp4 00:19 Drug: Alum-Mag Hydroxide-Simeth PO Suspension (200 mg-200 mg-20 mg/5 mL) 30 ml PO once cp4 Route: PO; 03:35 Follow up: Response: No adverse reaction; Pain is decreased cp4 00:19 Drug: Famotidine IVP 20 mg IVP once; dilute with 10 mL 0.9% NaCl; give over 2 minutes cp4 Route: IVP; Site: right antecubital; 03:35 Follow up: Response: No adverse reaction; Pain is decreased cp4 00:20 Drug: Ondansetron IVP 4 mg IVP once; over 2 minutes Route: IVP; Site: right antecubital;cp4 03:34 Follow up: Response: No adverse reaction; Nausea is decreased cp4 00:20 Drug: Ativan IVP 0.5 mg IVP once Route: IVP; Site: right antecubital; cp4 03:35 Follow up: Response: No adverse reaction; Anxiety decreased cp4 03:34 Drug: LORazepam PO 0.5 mg PO once Route: PO; cp4 03:35 Follow up: Response: No adverse reaction; Anxiety decreased cp4 Medication: 00:27 VIS not applicable for this client. cp4 Outcome: 02:38 Discharge ordered by tt7 03:37 Discharged to home ambulatory, cp4 03:37 Condition: stable 03:37 Discharge instructions given to patient, Instructed on discharge instructions, follow up and referral plans. Demonstrated understanding of instructions, follow-up care, 03:40 Patient left the ED. cp4 Signatures: Dispatcher [employer] EDMS Moises, Nasreen, Reg Reg mr Unique Hinds, RN RN vc1 Etelvina Connelly cp4 Jeramie Monahan DO DO tt7
[2025-02-23] MEDS ORDERED: LORAZEPAM 0.5 MG TABLET ONE (03:27)
[2025-02-23 03:46] VITALS: TEMP 99.2
[2025-02-23 03:51] VITALS: O2SAT 97
[2025-02-23 03:53] VITALS: BP 134/72
--- NOTE | 2025-02-23 05:11 | RAD REPORT ---
EXAM: XR Chest, 1 View CLINICAL HISTORY: The patient is 65 years old and is Female; CHEST PAIN TECHNIQUE: Frontal view of the chest. COMPARISON: No relevant prior studies available. FINDINGS: LUNGS: Unremarkable. No consolidation. PLEURAL SPACE: Unremarkable. No pneumothorax. HEART: Unremarkable. No cardiomegaly. MEDIASTINUM: Unremarkable. Normal mediastinal contour. BONES/JOINTS: Unremarkable. No acute fracture. UPPER ABDOMEN: Unremarkable as visualized. IMPRESSION: No acute cardiopulmonary process. Electronically signed by: Marimar Lopez MD 02/23/2025 12:16 AM CDT RP Due to temporary technical issues with the PACS/[employer] reporting system, reports are being jose luis d by the in-house radiologist without review as a courtesy to ensure prompt reporting the interpreting radiologist is fully responsible for the content of the report. Transcribed Date/Time: 02/23/2025 5:11 AM
== END 2025-02-23 03:40 | disposition home or self-care (01) ==
LOC: ER 23:09
DX: R07.9 Chest pain, unspecified (principal); I10 Essential (primary) hypertension
CPT/HCPCS: 93005; 85025; 80048; 36415; 84484 ×2; 83690; 83880; 71045; 96375; 96374; 99285; J2405